=== PATIENT | female | born 1945 | race Caucasian/White ===

== ENCOUNTER → 2017-02-19 | Outpatient (REF) | payer MEDICARE, BC ==
[2017-02-19 18:40] LABS: FOLATE > 24.0 NG/ML; VITAMIN B12 LEVEL 767 PG/ML
[2017-02-19 18:45] LABS: PERCENT SATURATION 22.2 % (13.2-37.4); TOTAL IRON BINDING CAPACITY 428 UG/DL (250-450)
== END ==
LOC: M LAB REF 17:41
PROVIDERS: ATTEND Internal Medicine
DX: D50.9 Iron deficiency anemia, unspecified (principal)

== ENCOUNTER → 2018-04-30 | Outpatient (REF) | payer MEDICARE, BC | LOC: M LAB REF 12:52 | DX: R10.9 Unspecified abdominal pain (principal) | CPT/HCPCS: 87186 ==

== ENCOUNTER → 2021-02-08 | Outpatient (REF) | payer MEDICARE, BC | LOC: M LAB REF 16:49 | PROVIDERS: ATTEND Physician Assistant Medical | DX: I10 Essential (primary) hypertension (principal) ==

== ENCOUNTER → 2021-02-09 | Outpatient (CLI) | payer MEDICARE, BC ==
--- NOTE | 2021-02-09 10:50 | REP ---
INDICATION: HTN COMPARISON: None None TECHNIQUE: Real time pascal scale ultrasound examination using curved array transducer followed by color Doppler evaluation of the renal vasculature. FINDINGS: The kidneys are normal in reniform shape with no hydronephrosis, nephrolithiasis or mass lesion. Right kidney measures 10.9 x 5.1 x 2.8 cm. Left kidney measures 10.0 x 4.8 x 6.0 cm and includes 2.8 cm upper pole simple cyst. Incidental enlarged heterogeneous presumed myomatous uterus may warrant pelvic ultrasound.. Color Doppler evaluation. Peak aortic velocity: 79.5 centimeters/second RIGHT KIDNEY Renal arterial velocity: 84.9 centimeters/second Renal-aortic ratio: 1.1 Intrarenal resistive indices: 0.70-0.73 Intrarenal acceleration times: 0.033-0.042 LEFT KIDNEY Renal arterial velocity: 96.8 centimeters/second Renal-aortic ratio: 1.2 Intrarenal resistive indices: 0.74-0.78 Intrarenal acceleration times: 0.033-0.044 IMPRESSION: 1. Kidneys appear normal with incidental 2.8 cm left renal cyst. 2. Doppler interegation without sonographic evidence for renal arterial stenosis. 3. Enlarged heterogeneous presumed myomatous uterus may warrant pelvic ultrasound follow-up. <Electronically signed by Alfredo Ulloa > 02/09/21 [id number]
== END ==
LOC: M RAD 08:54
PROVIDERS: ATTEND Physician Assistant Medical
DX: I10 Essential (primary) hypertension (principal); N28.1 Cyst of kidney, acquired; N85.2 Hypertrophy of uterus

== ENCOUNTER → 2021-03-14 | Outpatient (REF) | payer MEDICARE, BC ==
[2021-03-15 14:48] LABS: FOLATE 11.8 NG/ML
== END ==
LOC: M LAB REF 12:20
PROVIDERS: ATTEND Internal Medicine
DX: M81.0 Age-related osteoporosis without current pathological fracture (principal); M85.9 Disorder of bone density and structure, unspecified

== ENCOUNTER → 2021-04-13 | Outpatient (CLI) | payer MEDICARE, BC ==
[~2021-04-13] MED LIST: ALDA25TA2 PO; CELE1CAP4 PO; LISI40TA4 PO; NADO40TA PO; NEXI40GR PO; PLAQ200T4 PO; TRAM50TA2 PO
== END ==
LOC: M LABSMTC 11:20
PROVIDERS: ATTEND Anesthesiology
DX: Z01.812 Encounter for preprocedural laboratory examination (principal); Z20.822 Contact with and (suspected) exposure to COVID-19

== ENCOUNTER → 2021-05-22 | Outpatient (CLI) | payer MEDICARE, BC ==
--- NOTE | 2021-05-22 13:41 | REP ---
INDICATION: J47.9 BRONCHIECTASIS, UNCOMPLICATED COMPARISON: 04/13/2020. TECHNIQUE: PA/Lateral FINDINGS: Lungs: There is no evidence of acute infiltrate. There is mild to moderate elevation of the right hemidiaphragm with adjacent fibro atelectatic change, stable. Heart: There is mild cardiomegaly which is stable. Mediastinum: Mediastinal silhouette unremarkable. Pleural angles: Unremarkable.. Bones and soft tissues: There are mild degenerative changes of the spine without compression deformity IMPRESSION: No acute pulmonary disease. Stable chronic findings as above. <Electronically signed by Cruz Guzman > 05/22/21 [id number]
== END ==
LOC: M PLAIMG 11:43
PROVIDERS: ATTEND Internal Medicine Pulmonary Disease
DX: J47.9 Bronchiectasis, uncomplicated (principal)

== ENCOUNTER → 2021-05-22 | Outpatient (CLI) | payer MEDICARE, BC ==
--- NOTE | 2021-05-22 13:11 | DEXAMM ---
INDICATION: AGE REL OSTEOPOROSIS W/O FX/M81.0. COMPARISON: 04/29/2019 as well as other prior exams. TECHNIQUE: Bone density was measured using dual-energy x-ray absorptiometry (DEXA). FINDINGS: AP SPINE L1-L4 BMD 1.075 g/cm2 Young Adult T-Score -1.0 Age Matched Z-Score 0.8. LT forearm, radius TOTAL BMD 0.462 g/cm2 Young Adult T-Score -3.5 Age Matched Z-Score -1.1. LT radius 33% BMD 0.553 g/cm2 Young Adult T-Score -3.7 Age Matched Z-Score -1.3. IMPRESSION: There is low bone density of the spine. There is osteoporosis of the left radius. The density of the spine has increased 3.4% since the initial exam on 12/01/2002. The density of the spine increased 2.4% since most recent exam on 04/29/2019. FOLLOW-UP: Recommendation for the next bone density exam: 2 years. <Electronically signed by Cruz Guzman > 05/22/21 [id number]
== END ==
LOC: M WHC 11:02
PROVIDERS: ATTEND Internal Medicine
DX: M81.0 Age-related osteoporosis without current pathological fracture (principal); M85.88 Other specified disorders of bone density and structure, other site; J47.9 Bronchiectasis, uncomplicated

== ENCOUNTER 2022-01-17 06:49 | Emergency (ER) | payer MEDICARE, BC ==
[2022-01-17] MEDS ORDERED: ACETAMINOPHEN TAB 650MG DOSE (2X325MG) PO ONE (07:00)
[2022-01-17 08:06] LABS: HEMATOCRIT 35.4 % (36.0-47.0); HEMOGLOBIN 12.2 g/dl (12.0-15.5); MEAN CORPUSCULAR HEMOGLOBIN 32.4 pg (27.0-33.0); MEAN CORPUSCULAR HGB CONC 34.5 g/dl (32.0-36.5); MEAN CORPUSCULAR VOLUME 94.1 fl (80.0-96.0); PLATELET COUNT, AUTOMATED 166 10^3/uL (150-450); RED BLOOD COUNT 3.76 10^6/uL (4.00-5.40)
[2022-01-17 08:37] LABS: ALBUMIN 3.3 GM/DL (3.2-5.2); ALT/SGPT 57 U/L (12-78); BILIRUBIN,DIRECT 0.2 MG/DL (0.0-0.2); BILIRUBIN,TOTAL 0.4 MG/DL (0.2-1.0); BLOOD UREA NITROGEN 30 MG/DL (7-18); CALCIUM LEVEL 9.4 MG/DL (8.8-10.2); CARBON DIOXIDE LEVEL 23 MEQ/L (21-32); CHLORIDE LEVEL 107 MEQ/L (98-107); CREATININE FOR GFR 0.92 MG/DL (0.55-1.30); GLOMERULAR FILTRATION RATE > 60.0 (>39); GLUCOSE, FASTING 93 MG/DL (70-100); NT-PRO BNP 881 PG/ML (<450); POTASSIUM SERUM 3.9 MEQ/L (3.5-5.1); SODIUM LEVEL 138 MEQ/L (136-145); TOTAL PROTEIN 6.5 GM/DL (6.4-8.2)
[2022-01-17] MEDS ORDERED: IBUPROFEN 600MG TAB PO ONE (09:05)
[2022-01-17 09:22] LABS: LYMPHOCYTES 12 % (16-44); NEUTROPHILS 86 % (28-66); PLATELET ESTIMATE DECREASED (NORMAL)
[2022-01-17 09:23] LABS: PLATELET CLUMPS SMALL AMT
[2022-01-17] MEDS ORDERED: RIZATRIPTAN BENZOATE 10 MG TAB PO STA (09:52)
[2022-01-17] MEDS ORDERED: RIZA10TA2 PO (10:29)
[2022-01-17] MEDS ORDERED: PRED5TA PO (10:29)
[2022-01-17] MEDS ORDERED: D3-5CAP PO (10:29)
[2022-01-17] MEDS ORDERED: MAGN200T PO (10:29)
[2022-01-17] MEDS ORDERED: ALLE180T33 PO (10:29)
[2022-01-17] MEDS ORDERED: FLON1SPR NARES (10:29)
[2022-01-17] MEDS ORDERED: ESTR62CR PV (10:29)
[2022-01-17] MEDS ORDERED: ESOM40CA35 PO (10:29)
[2022-01-17] MEDS ORDERED: REST0.05 OU (10:29)
[2022-01-17] MEDS ORDERED: TRIA1OI TOP (10:29)
[2022-01-17] MEDS ORDERED: HOME MED LIST COMPLETE! XX SCH (10:30)
[2022-01-17] MEDS ORDERED: CLINDAMYCIN 900 MG in IV 1 EA IV ONE (11:30)
[2022-01-17] MEDS ORDERED: CLEO300C2 PO (12:12)
[2022-01-17 12:47] VITALS: BP 112/56
[2022-01-17] MEDS ORDERED: MACR100C43 PO (12:57)
== END 2022-01-17 12:55 | disposition home or self-care (01) ==
LOC: M ED 06:49
DX: J01.90 Acute sinusitis, unspecified (principal); R93.2 Abnormal findings on diagnostic imaging of liver and biliary tract; R91.8 Other nonspecific abnormal finding of lung field; R50.9 Fever, unspecified; R06.02 Shortness of breath; R11.2 Nausea with vomiting, unspecified; M32.9 Systemic lupus erythematosus, unspecified; K21.9 Gastro-esophageal reflux disease without esophagitis; R13.10 Dysphagia, unspecified; G43.909 Migraine, unspecified, not intractable, without status migrainosus; K29.70 Gastritis, unspecified, without bleeding; N28.1 Cyst of kidney, acquired; N83.201 Unspecified ovarian cyst, right side; Z79.899 Other long term (current) drug therapy; Z88.8 Allergy status to other drugs, medicaments and biological substances; Z91.041 Radiographic dye allergy status; Z88.0 Allergy status to penicillin; Z88.2 Allergy status to sulfonamides; Z88.1 Allergy status to other antibiotic agents

== ENCOUNTER 2022-01-18 14:24 | Inpatient (IN) | payer MEDICARE, BC ==
[~2022-01-18] VITALS: Ht 165.1 cm; Wt 64.5 kg
[~2022-01-18 14:24] MED LIST changes: +ALLE180T33 PO; +CLEO300C2 PO; +D3-5CAP PO; +ESOM40CA35 PO; +ESTR62CR PV; +FLON1SPR NARES; +MACR100C43 PO; +MAGN200T PO; +PRED5TA PO; +REST0.05 OU; +RIZA10TA2 PO; +TRIA1OI TOP
[2022-01-18] MEDS ORDERED: RIZATRIPTAN MLT 10 MG TAB PO ONE (14:55)
[2022-01-18] MEDS ORDERED: ONDANSETRON 4MG/2ML VIAL IV ONE (14:55)
[2022-01-18] MEDS ORDERED: IBUPROFEN 600MG TAB PO ONE (15:00)
[2022-01-18 15:24] LABS: HEMATOCRIT 34.8 % (36.0-47.0); HEMOGLOBIN 11.8 g/dl (12.0-15.5); MEAN CORPUSCULAR HGB CONC 33.9 g/dl (32.0-36.5); MEAN CORPUSCULAR VOLUME 94.3 fl (80.0-96.0); PLATELET COUNT, AUTOMATED 161 10^3/uL (150-450); RED BLOOD COUNT 3.69 10^6/uL (4.00-5.40); WHITE BLOOD COUNT 10.2 10^3/uL (4.0-10.0)
[2022-01-18] MEDS: NS 1,000 ML IV SCH ×2 (15:31→20:52)
[2022-01-18 15:44] LABS: ALT/SGPT 83 U/L (12-78); BILIRUBIN,DIRECT 0.6 MG/DL (0.0-0.2); BLOOD UREA NITROGEN 19 MG/DL (7-18); CALCIUM LEVEL 8.7 MG/DL (8.8-10.2); CARBON DIOXIDE LEVEL 23 MEQ/L (21-32); CHLORIDE LEVEL 103 MEQ/L (98-107); CREATININE FOR GFR 0.83 MG/DL (0.55-1.30); GLOMERULAR FILTRATION RATE > 60.0 (>39); GLUCOSE, FASTING 81 MG/DL (70-100); LIPASE 60 U/L (73-393); POTASSIUM SERUM 3.3 MEQ/L (3.5-5.1); SODIUM LEVEL 134 MEQ/L (136-145); TOTAL PROTEIN 6.1 GM/DL (6.4-8.2)
[2022-01-18 16:06] LABS: LYMPHOCYTES 3 % (16-44); METAMYELOCYTES 2 % (0-0); MONOCYTES 2 % (0-5); MYELOCYTES 1 % (0-0); NEUTROPHILS 73 % (28-66); PLATELET ESTIMATE NORMAL (NORMAL)
[2022-01-18 16:07] LABS: TOXIC VACUOLATION 1+
[2022-01-18 17:55] LABS: ERYTHROCYTE SEDIMENTATION RATE 35 mm/hr (0-30)
[2022-01-18] MEDS ORDERED: MEROPENEM INJ 1 GM in IV 1 EA IV SCH (18:00)
[2022-01-18] MEDS ORDERED: HOME MED LIST COMPLETE! XX SCH (18:10)
[2022-01-18 18:50] VITALS: BP 123/57
[2022-01-18] MEDS ORDERED: RIZATRIPTAN BENZOATE 10 MG TAB PO PRN (18:55)
[2022-01-18 19:13] LABS: MONO REFLEX EBV VCA IgM NEGATIVE (NEGATIVE)
[2022-01-18] MEDS ORDERED: POTASSIUM CHLORIDE 10MEQ SR TABLET PO ONE (20:00)
[2022-01-18] MEDS: NADOLOL 20MG TABLET PO SCH (20:51)
[2022-01-18] MEDS: CelecoXIB (CeleBREX) 100 MG CAP PO SCH (20:52)
[2022-01-18] MEDS: ACETAMINOPHEN TAB 650MG DOSE (2X325MG) PO PRN (20:57)
[2022-01-18] MEDS: MEROPENEM INJ 1 GM in IV 1 EA IV SCH (22:31)
[2022-01-19] MEDS: NS 1,000 ML IV SCH (04:36)
[2022-01-19 05:27] VITALS: BP 144/65
[2022-01-19] MEDS: MEROPENEM INJ 1 GM in IV 1 EA IV SCH ×3 (05:44→21:03)
[2022-01-19] MEDS: traMADol 50 MG TAB PO PRN ×2 (05:55→15:54)
[2022-01-19 07:14] LABS: HEMATOCRIT 31.9 % (36.0-47.0); HEMOGLOBIN 10.5 g/dl (12.0-15.5); MEAN CORPUSCULAR HEMOGLOBIN 32.2 pg (27.0-33.0); MEAN CORPUSCULAR HGB CONC 32.9 g/dl (32.0-36.5); MEAN CORPUSCULAR VOLUME 97.9 fl (80.0-96.0); PLATELET COUNT, AUTOMATED 159 10^3/uL (150-450); RED BLOOD COUNT 3.26 10^6/uL (4.00-5.40); WHITE BLOOD COUNT 12.1 10^3/uL (4.0-10.0)
[2022-01-19 07:38] LABS: ALBUMIN 2.5 GM/DL (3.2-5.2); ALT/SGPT 59 U/L (12-78); BILIRUBIN,TOTAL 0.6 MG/DL (0.2-1.0); BLOOD UREA NITROGEN 17 MG/DL (7-18); CALCIUM LEVEL 8.1 MG/DL (8.8-10.2); CARBON DIOXIDE LEVEL 21 MEQ/L (21-32); CHLORIDE LEVEL 109 MEQ/L (98-107); CREATININE FOR GFR 0.75 MG/DL (0.55-1.30); GLOMERULAR FILTRATION RATE > 60.0 (>39); GLUCOSE, FASTING 58 MG/DL (70-100); POTASSIUM SERUM 3.8 MEQ/L (3.5-5.1); SODIUM LEVEL 139 MEQ/L (136-145); TOTAL PROTEIN 5.3 GM/DL (6.4-8.2)
[2022-01-19 07:57] LABS: EOSINOPHILS 1 % (0-3); LYMPHOCYTES 7 % (16-44); MONOCYTES 2 % (0-5); NEUTROPHILS 87 % (28-66); PLATELET ESTIMATE NORMAL (NORMAL)
[2022-01-19] MEDS: CelecoXIB (CeleBREX) 100 MG CAP PO SCH ×2 (08:23→21:02)
[2022-01-19] MEDS: FLUTICASONE PROP 0.05% NASAL SPRAY 16 GM (FLONASE) NARES SCH (08:23)
[2022-01-19] MEDS: predniSONE 5 MG TAB PO SCH (08:23)
[2022-01-19] MEDS ORDERED: FEXOFENADINE 60MG TAB PO SCH (12:00)
[2022-01-19 14:00] VITALS: BP 150/67
[2022-01-19] MEDS: PLAQUENIL 200 MG PO SCH (17:19)
[2022-01-19] MEDS: NADOLOL 20MG TABLET PO SCH (21:02)
[2022-01-19 22:00] VITALS: BP 156/71
[2022-01-20] MEDS: MEROPENEM INJ 1 GM in IV 1 EA IV SCH ×3 (05:32→21:11)
[2022-01-20 06:00] VITALS: BP 180/82
[2022-01-20 07:01] LABS: BASO % 0.4 % (0.0-1.0); EOS # 0.1 10^3/uL (0.0-0.5); EOS % 1.3 % (0.0-3.0); HEMATOCRIT 32.2 % (36.0-47.0); HEMOGLOBIN 10.7 g/dl (12.0-15.5); LYMPH # 0.9 10^3/uL (1.5-5.0); LYMPH % 9.1 % (24.0-44.0); MEAN CORPUSCULAR HEMOGLOBIN 31.7 pg (27.0-33.0); MEAN CORPUSCULAR HGB CONC 33.2 g/dl (32.0-36.5); MEAN CORPUSCULAR VOLUME 95.3 fl (80.0-96.0); MONO # 0.8 10^3/uL (0.0-0.8); MONO % 8.7 % (2.0-8.0); NEUTROPHILS # 7.7 10^3/uL (1.5-8.5); NEUTROPHILS % 79.4 % (36.0-66.0); PLATELET COUNT, AUTOMATED 179 10^3/uL (150-450); RED BLOOD COUNT 3.38 10^6/uL (4.00-5.40); WHITE BLOOD COUNT 9.7 10^3/uL (4.0-10.0)
[2022-01-20 07:23] VITALS: BP 149/64
[2022-01-20 07:25] LABS: ALBUMIN 2.4 GM/DL (3.2-5.2); ALT/SGPT 45 U/L (12-78); BILIRUBIN,TOTAL 0.5 MG/DL (0.2-1.0); BLOOD UREA NITROGEN 12 MG/DL (7-18); CALCIUM LEVEL 8.6 MG/DL (8.8-10.2); CARBON DIOXIDE LEVEL 23 MEQ/L (21-32); CHLORIDE LEVEL 110 MEQ/L (98-107); GLOMERULAR FILTRATION RATE > 60.0 (>39); GLUCOSE, FASTING 96 MG/DL (70-100); POTASSIUM SERUM 3.6 MEQ/L (3.5-5.1); SODIUM LEVEL 138 MEQ/L (136-145); TOTAL PROTEIN 6.6 GM/DL (6.4-8.2)
[2022-01-20] MEDS: predniSONE 5 MG TAB PO SCH (08:23)
[2022-01-20] MEDS: traMADol 50 MG TAB PO PRN (08:24)
[2022-01-20] MEDS: SPIRONOLACTONE 25 MG TAB PO SCH (08:24)
[2022-01-20] MEDS: TRIAMCINOLONE ACET 0.1% OINTMENT 15 GM TOP SCH ×2 (08:24→21:00)
[2022-01-20] MEDS: FLUTICASONE PROP 0.05% NASAL SPRAY 16 GM (FLONASE) NARES SCH (08:24)
[2022-01-20 14:00] VITALS: BP 138/70
[2022-01-20] MEDS: CelecoXIB 400 MG CAP PO SCH (17:30)
[2022-01-20] MEDS: PLAQUENIL 200 MG PO SCH (17:30)
[2022-01-20] MEDS: LACTOBACILLUS ACIDOPHILUS CAP (BACID) PO SCH (21:11)
[2022-01-20] MEDS: NADOLOL 20MG TABLET PO SCH (21:12)
[2022-01-20 22:00] VITALS: BP 136/61
[2022-01-21] MEDS: MEROPENEM INJ 1 GM in IV 1 EA IV SCH ×3 (05:48→21:15)
[2022-01-21 06:00] VITALS: BP 142/78
[2022-01-21 06:13] LABS: BASO # 0.1 10^3/uL (0.0-0.2); BASO % 0.7 % (0.0-1.0); EOS # 0.1 10^3/uL (0.0-0.5); EOS % 1.6 % (0.0-3.0); HEMATOCRIT 32.5 % (36.0-47.0); HEMOGLOBIN 10.7 g/dl (12.0-15.5); LYMPH % 13.6 % (24.0-44.0); MEAN CORPUSCULAR HEMOGLOBIN 31.3 pg (27.0-33.0); MEAN CORPUSCULAR HGB CONC 32.9 g/dl (32.0-36.5); MONO # 0.7 10^3/uL (0.0-0.8); MONO % 9.8 % (2.0-8.0); NEUTROPHILS # 5.1 10^3/uL (1.5-8.5); NEUTROPHILS % 72.3 % (36.0-66.0); PLATELET COUNT, AUTOMATED 188 10^3/uL (150-450); RED BLOOD COUNT 3.42 10^6/uL (4.00-5.40); WHITE BLOOD COUNT 7.1 10^3/uL (4.0-10.0)
[2022-01-21 06:36] LABS: ALBUMIN 2.6 GM/DL (3.2-5.2); ALT/SGPT 39 U/L (12-78); BILIRUBIN,TOTAL 0.5 MG/DL (0.2-1.0); BLOOD UREA NITROGEN 11 MG/DL (7-18); CALCIUM LEVEL 8.7 MG/DL (8.8-10.2); CARBON DIOXIDE LEVEL 27 MEQ/L (21-32); CHLORIDE LEVEL 108 MEQ/L (98-107); CREATININE FOR GFR 0.56 MG/DL (0.55-1.30); GLOMERULAR FILTRATION RATE > 60.0 (>39); GLUCOSE, FASTING 96 MG/DL (70-100); POTASSIUM SERUM 3.8 MEQ/L (3.5-5.1); SODIUM LEVEL 140 MEQ/L (136-145); TOTAL PROTEIN 5.7 GM/DL (6.4-8.2)
[2022-01-21] MEDS: TRIAMCINOLONE ACET 0.1% OINTMENT 15 GM TOP SCH ×2 (09:00→21:00)
[2022-01-21] MEDS: predniSONE 5 MG TAB PO SCH (09:46)
[2022-01-21] MEDS: LACTOBACILLUS ACIDOPHILUS CAP (BACID) PO SCH ×4 (09:46→21:15)
[2022-01-21] MEDS: ACETAMINOPHEN TAB 650MG DOSE (2X325MG) PO PRN (09:47)
[2022-01-21] MEDS: FLUTICASONE PROP 0.05% NASAL SPRAY 16 GM (FLONASE) NARES SCH (09:48)
[2022-01-21 14:00] VITALS: BP 140/75
[2022-01-21 15:10] LABS: ANTI DOUBLE STRAND-DNA AB 5 IU/mL (0-9); ANTINUCLEAR ANTIBODIES DIRECT Positive (Negative); RNP ANTIBODIES <0.2 AI (0.0-0.9); SJOGREN'S ANTI SS-A 0.4 AI (0.0-0.9); SJOGREN'S ANTI SS-B <0.2 AI (0.0-0.9); SMITH ANTIBODIES <0.2 AI (0.0-0.9)
[2022-01-21] MEDS: PLAQUENIL 200 MG PO SCH (18:25)
[2022-01-21] MEDS: CelecoXIB 400 MG CAP PO SCH (18:25)
[2022-01-21 20:33] VITALS: BP 136/78
[2022-01-21 21:17] VITALS: BP 140/72
[2022-01-21] MEDS: NADOLOL 20MG TABLET PO SCH (21:17)
[2022-01-22 05:26] VITALS: BP 149/88
[2022-01-22 06:16] LABS: HEMOGLOBIN 11.3 g/dl (12.0-15.5); MEAN CORPUSCULAR HEMOGLOBIN 31.3 pg (27.0-33.0); MEAN CORPUSCULAR HGB CONC 33.2 g/dl (32.0-36.5); MEAN CORPUSCULAR VOLUME 94.2 fl (80.0-96.0); PLATELET COUNT, AUTOMATED 210 10^3/uL (150-450); RED BLOOD COUNT 3.61 10^6/uL (4.00-5.40); WHITE BLOOD COUNT 6.7 10^3/uL (4.0-10.0)
[2022-01-22] MEDS: MEROPENEM INJ 1 GM in IV 1 EA IV SCH ×2 (06:17→14:20)
[2022-01-22 06:45] LABS: ATYPICAL LYMPH 1 % (0-5); BASOPHILS 1 % (0-1); EOSINOPHILS 2 % (0-3); LYMPHOCYTES 22 % (16-44); MONOCYTES 3 % (0-5); NEUTROPHILS 71 % (28-66); PLATELET ESTIMATE NORMAL (NORMAL)
[2022-01-22 06:47] LABS: ALBUMIN 2.6 GM/DL (3.2-5.2); ALT/SGPT 39 U/L (12-78); BILIRUBIN,TOTAL 0.3 MG/DL (0.2-1.0); BLOOD UREA NITROGEN 13 MG/DL (7-18); CALCIUM LEVEL 9.1 MG/DL (8.8-10.2); CARBON DIOXIDE LEVEL 26 MEQ/L (21-32); CHLORIDE LEVEL 107 MEQ/L (98-107); GLOMERULAR FILTRATION RATE > 60.0 (>39); GLUCOSE, FASTING 93 MG/DL (70-100); POTASSIUM SERUM 3.9 MEQ/L (3.5-5.1); SODIUM LEVEL 141 MEQ/L (136-145); TOTAL PROTEIN 5.8 GM/DL (6.4-8.2)
[2022-01-22] MEDS: TRIAMCINOLONE ACET 0.1% OINTMENT 15 GM TOP SCH (09:00)
[2022-01-22] MEDS: LACTOBACILLUS ACIDOPHILUS CAP (BACID) PO SCH ×3 (10:32→17:30)
[2022-01-22] MEDS: FLUTICASONE PROP 0.05% NASAL SPRAY 16 GM (FLONASE) NARES SCH (10:32)
[2022-01-22] MEDS: predniSONE 5 MG TAB PO SCH (10:35)
[2022-01-22] MEDS: SPIRONOLACTONE 25 MG TAB PO SCH (10:35)
[2022-01-22 14:00] VITALS: BP 120/80
[2022-01-22 15:39] VITALS: BP 217/86
[2022-01-22] MEDS ORDERED: RISATAB3 PO (15:48)
[2022-01-22] MEDS ORDERED: LIDOCAINE 1% MDV 20ML VIAL As Ordered ONE (16:27)
[2022-01-22] MEDS: PLAQUENIL 200 MG PO SCH (17:30)
[2022-01-22] MEDS: CelecoXIB 400 MG CAP PO SCH (17:30)
[2022-01-22] MEDS ORDERED: SODIUM CHLORIDE 0.9% INJ 10 ML SYR IV PRN (17:45)
[2022-01-22] MEDS ORDERED: SODIUM CHLORIDE 0.9% INJ 10 ML SYR IV SCH (18:00)
== END 2022-01-22 18:45 | disposition home or self-care (01) | DRG 689 ==
LOC: M ED 14:24 → M ED INP 16:34 → M MSPAV 18:45
PROVIDERS: ADMIT General Practice; ATTEND Internal Medicine
PROC: 02HV33Z Insertion of Infusion Device into Superior Vena Cava, Percutaneous Approach (ICD-10-PCS; principal; 2022-01-22 11:00)
DX: N39.0 Urinary tract infection, site not specified (principal); J18.9 Pneumonia, unspecified organism; R78.81 Bacteremia; A31.0 Pulmonary mycobacterial infection; J01.90 Acute sinusitis, unspecified; Z79.52 Long term (current) use of systemic steroids; J47.9 Bronchiectasis, uncomplicated; B96.20 Unspecified Escherichia coli [E. coli] as the cause of diseases classified elsewhere; L93.0 Discoid lupus erythematosus; R74.01 Elevation of levels of liver transaminase levels; R91.8 Other nonspecific abnormal finding of lung field; K76.0 Fatty (change of) liver, not elsewhere classified; Z79.899 Other long term (current) drug therapy; Z88.2 Allergy status to sulfonamides; Z88.8 Allergy status to other drugs, medicaments and biological substances; Z91.018 Allergy to other foods; R19.7 Diarrhea, unspecified

== ENCOUNTER 2022-01-28 08:16 | Outpatient (CLI) | payer MEDICARE, BC ==
[~2022-01-28] VITALS: Ht 165.1 cm; Wt 64.0 kg
[~2022-01-28 08:16] MED LIST changes: +RISATAB3 PO
[2022-01-28 08:46] VITALS: BP 169/77
[2022-01-28 08:59] VITALS: BP 158/76
== END 2022-01-28 09:00 | disposition home or self-care (01) ==
LOC: M INFU 08:16
PROVIDERS: ATTEND General Practice
DX: R78.81 Bacteremia (principal); B96.20 Unspecified Escherichia coli [E. coli] as the cause of diseases classified elsewhere; Z88.8 Allergy status to other drugs, medicaments and biological substances; Z91.041 Radiographic dye allergy status; Z88.0 Allergy status to penicillin; Z88.2 Allergy status to sulfonamides; Z88.1 Allergy status to other antibiotic agents; Z91.018 Allergy to other foods

== ENCOUNTER → 2022-04-22 | Outpatient (CLI) | payer MEDICARE, BC | LOC: M PLAIMG 14:39 | PROVIDERS: ATTEND Internal Medicine | DX: D37.6 Neoplasm of uncertain behavior of liver, gallbladder and bile ducts (principal) ==

== ENCOUNTER → 2022-06-04 | Outpatient (CLI) | payer MEDICARE, BC | LOC: M PLAIMG 10:40 | PROVIDERS: ATTEND Internal Medicine Pulmonary Disease | DX: J47.9 Bronchiectasis, uncomplicated (principal); R91.8 Other nonspecific abnormal finding of lung field ==

== ENCOUNTER → 2022-09-26 12:18 | Day surgery (SDC) | payer MEDICARE, BC ==
[2021-04-18 16:48] VITALS: BP 168/75
[~2022-09-26] VITALS: Ht 165.1 cm; Wt 60.1 kg
[~2022-09-26 12:18] MED LIST changes: +NS 1,000 ML IV ONE; +fentaNYL 100 MCG/2 ML INJECTION As Ordered ONE
== END | disposition home or self-care (01) ==
LOC: M OPP 04-18 12:41
PROVIDERS: ATTEND Surgery
DX: K22.2 Esophageal obstruction (principal); K31.7 Polyp of stomach and duodenum; R13.14 Dysphagia, pharyngoesophageal phase; K44.9 Diaphragmatic hernia without obstruction or gangrene; Z79.891 Long term (current) use of opiate analgesic; Z79.899 Other long term (current) drug therapy; Z88.0 Allergy status to penicillin; Z88.1 Allergy status to other antibiotic agents; Z88.2 Allergy status to sulfonamides
CPT/HCPCS: 43249; J3010

== ENCOUNTER → 2023-01-21 | Outpatient (CLI) | payer MEDICARE, BC ==
[~2023-01-21] MED LIST changes: -NS 1,000 ML IV ONE; -fentaNYL 100 MCG/2 ML INJECTION As Ordered ONE
== END ==
LOC: M PLAIMG 12:10
PROVIDERS: ATTEND Internal Medicine Pulmonary Disease
DX: J47.9 Bronchiectasis, uncomplicated (principal)

== ENCOUNTER → 2023-02-21 | Outpatient (CLI) | payer MEDICARE, BC | LOC: M PLAIMG 11:46 | PROVIDERS: ATTEND Internal Medicine Pulmonary Disease | DX: J47.9 Bronchiectasis, uncomplicated (principal) ==

== ENCOUNTER → 2023-02-25 | Outpatient (REF) | payer MEDICARE, BC | LOC: M LAB REF 11:27 | PROVIDERS: ATTEND Internal Medicine Pulmonary Disease | DX: J47.9 Bronchiectasis, uncomplicated (principal) ==

== ENCOUNTER → 2023-03-06 | Outpatient (CLI) | payer MEDICARE, BC | LOC: M RAD 09:31 | PROVIDERS: ATTEND Otolaryngology | DX: J32.4 Chronic pansinusitis (principal); J34.2 Deviated nasal septum ==

== ENCOUNTER → 2023-03-18 | Outpatient (CLI) | payer MEDICARE, BC | LOC: M RADPRO 09:47 | PROVIDERS: ATTEND Internal Medicine Pulmonary Disease | DX: K44.9 Diaphragmatic hernia without obstruction or gangrene (principal) ==

== ENCOUNTER → 2023-03-21 | Outpatient (REF) | payer MEDICARE, BC ==
[2023-03-21 14:26] LABS: PERCENT SATURATION 24.1 % (13.2-45.0)
[2023-03-21 14:32] LABS: FOLATE 6.7 NG/ML (>5.4)
== END ==
LOC: M LAB REF 13:22
PROVIDERS: ATTEND Internal Medicine
DX: D64.9 Anemia, unspecified (principal)

== ENCOUNTER 2023-05-25 10:38 | Inpatient (IN) | payer MEDICARE, BC ==
[~2023-05-25] VITALS: Ht 165.1 cm; Wt 63.5 kg
[2023-05-25 11:13] LABS: BASO % 0.2 % (0.0-1.0); EOS % 0.2 % (0.0-3.0); HEMATOCRIT 31.3 % (36.0-47.0); HEMOGLOBIN 10.5 g/dl (12.0-15.5); LYMPH # 0.4 10^3/uL (1.5-5.0); LYMPH % 2.9 % (24.0-44.0); MEAN CORPUSCULAR HEMOGLOBIN 32.6 pg (27.0-33.0); MEAN CORPUSCULAR HGB CONC 33.5 g/dl (32.0-36.5); MEAN CORPUSCULAR VOLUME 97.2 fl (80.0-96.0); MONO % 7.8 % (2.0-8.0); NEUTROPHILS # 11.7 10^3/uL (1.5-8.5); NEUTROPHILS % 88.3 % (36.0-66.0); PLATELET COUNT, AUTOMATED 193 10^3/uL (150-450); RED BLOOD COUNT 3.22 10^6/uL (4.00-5.40); WHITE BLOOD COUNT 13.3 10^3/uL (4.0-10.0)
[2023-05-25 11:29] LABS: APPEARANCE, URINE HAZY (CLEAR); BACTERIA, URINE AUTO 1+ (NEGATIVE); BILIRUBIN, URINE AUTO NEGATIVE (NEGATIVE); BLOOD, URINE BLOOD 1+ (NEGATIVE); COLOR, URINE YELLOW (YELLOW); GLUCOSE, URINE (UA) AUTO NEGATIVE (NEGATIVE); KETONE, URINE AUTO NEGATIVE (NEGATIVE); LEUKOCYTE ESTERASE, URINE AUTO 1+ (NEGATIVE); MUCUS, URINE SMALL (NEGATIVE); NITRITE, URINE AUTO NEGATIVE (NEGATIVE); PROTEIN, URINE AUTO NEGATIVE (NEGATIVE); RBC, URINE AUTO 2 /HPF (0-3); SPECIFIC GRAVITY URINE AUTO 1.015 (1.002-1.035); SQUAMOUS EPITHELIAL CELL UR AU 4 /HPF (0-6); UROBILINOGEN, URINE AUTO 0.2 mg/dL (0.0-2.0); WBC, URINE AUTO 26 /HPF (0-3)
[2023-05-25 11:42] LABS: ALBUMIN 3.3 G/DL (3.2-5.2); BILIRUBIN,TOTAL 0.5 MG/DL (0.3-1.2); CALCIUM LEVEL 9.1 MG/DL (8.3-10.6); CREATININE FOR GFR 0.96 MG/DL (0.55-1.30); GLOMERULAR FILTRATION RATE 59.8 (>39); POTASSIUM SERUM 4.4 MMOL/L (3.5-5.1); RSV AMPLIFICATION NEGATIVE (NEGATIVE); TOTAL PROTEIN 6.1 G/DL (5.7-8.2)
[2023-05-25 14:55] LABS: INR 1.08; PROTHROMBIN TIME 13.7 SECONDS (12.5-14.5)
[2023-05-25 15:02] LABS: CK-MB VALUE MASS < 1.0 NG/ML (<3.6)
[2023-05-25 15:03] LABS: CPK CREATINE PHOSPHOKINASE 82 U/L (34-145); MB/CK RELATIVE INDEX 1.21 (< OR =4)
[2023-05-25 15:06] LABS: THYROID STIMULATING HORMONE 1.037 uIU/ML (0.55-4.78)
[2023-05-25 15:15] LABS: PROCALCITONIN 0.31 ng/ml
[2023-05-25] MEDS ORDERED: MEROPENEM INJ 1 GM in IV 1 EA IV ONE (17:35)
[2023-05-25] MEDS ORDERED: ACETAMINOPHEN TAB 650MG DOSE (2X325MG) PO ONE (18:00)
[2023-05-25] MEDS ORDERED: MOM 30ML SUSPENSION UDC PO PRN (18:15)
[2023-05-25] MEDS ORDERED: MAALOX 30 ML SUSP *UDC PO PRN (18:15)
[2023-05-25] MEDS ORDERED: NADOLOL 20MG TABLET PO ONE (18:20)
[2023-05-25] MEDS ORDERED: NADO40TA PO (19:00)
[2023-05-25] MEDS ORDERED: RISATAB3 PO (19:00)
[2023-05-25] MEDS ORDERED: ACET650T15 PO (19:00)
[2023-05-25] MEDS ORDERED: HOME MED LIST COMPLETE! XX SCH (19:05)
[2023-05-25 19:17] LABS: CALCIUM LEVEL 8.8 MG/DL (8.3-10.6); MAGNESIUM LEVEL 1.6 MG/DL (1.8-2.4)
[2023-05-25 20:10] VITALS: BP 174/78; TEMP 100.7; O2SAT 95
[2023-05-25] MEDS ORDERED: amLODIPine 5 MG TAB PO ONE (21:00)
[2023-05-25 22:05] VITALS: BP 188/86; TEMP 102.9
[2023-05-25] MEDS: ACETAMINOPHEN TAB 650MG DOSE (2X325MG) PO PRN (22:05)
[2023-05-25] MEDS: RIZATRIPTAN BENZOATE 10 MG TAB PO PRN (22:50)
[2023-05-25 23:46] VITALS: BP 148/76; TEMP 101.8; O2SAT 96
[2023-05-26] VITALS (11 sets, daily range): BP systolic 107–147; BP diastolic 56–72; TEMP 96.5–101.9; O2SAT 94–97
[2023-05-26] MEDS: ACETAMINOPHEN TAB 650MG DOSE (2X325MG) PO PRN ×2 (02:26→08:13)
[2023-05-26] MEDS: MEROPENEM INJ 1 GM in IV 1 EA IV SCH ×2 (05:23→17:31)
[2023-05-26 05:49] LABS: BASO % 0.2 % (0.0-1.0); EOS % 0.1 % (0.0-3.0); HEMATOCRIT 35.8 % (36.0-47.0); HEMOGLOBIN 11.5 g/dl (12.0-15.5); LYMPH # 0.9 10^3/uL (1.5-5.0); LYMPH % 5.5 % (24.0-44.0); MEAN CORPUSCULAR HEMOGLOBIN 32.1 pg (27.0-33.0); MEAN CORPUSCULAR HGB CONC 32.1 g/dl (32.0-36.5); MONO # 1.3 10^3/uL (0.0-0.8); MONO % 7.8 % (2.0-8.0); NEUTROPHILS # 13.7 10^3/uL (1.5-8.5); NEUTROPHILS % 85.7 % (36.0-66.0); PLATELET COUNT, AUTOMATED 202 10^3/uL (150-450); RED BLOOD COUNT 3.58 10^6/uL (4.00-5.40); WHITE BLOOD COUNT 16.1 10^3/uL (4.0-10.0)
[2023-05-26 06:11] LABS: BLOOD UREA NITROGEN 18 MG/DL (9-23); CALCIUM LEVEL 9.3 MG/DL (8.3-10.6); CARBON DIOXIDE LEVEL 19 MMOL/L (20-31); CHLORIDE LEVEL 102 MMOL/L (98-107); CREATININE FOR GFR 0.93 MG/DL (0.55-1.30); GLOMERULAR FILTRATION RATE > 60.0 (>39); GLUCOSE, FASTING 62 MG/DL (74-106); MAGNESIUM LEVEL 1.8 MG/DL (1.8-2.4); POTASSIUM SERUM 4.3 MMOL/L (3.5-5.1); SODIUM LEVEL 137 MMOL/L (136-145)
[2023-05-26] MEDS: FLUTICASONE PROP 0.05% NASAL SPRAY 16 GM (FLONASE) NARES SCH (08:12)
[2023-05-26] MEDS: FEXOFENADINE 60MG TAB PO SCH (08:12)
[2023-05-26] MEDS: ENOXAPARIN 40MG/0.4ML SYRINGE (J1650 PER 10MG) SC SCH (08:12)
[2023-05-26] MEDS: CelecoXIB (CeleBREX) 100 MG CAP PO SCH ×2 (08:14→20:04)
[2023-05-26] MEDS: OMEPRAZOLE 20MG CAP PO SCH ×2 (08:14→10:53)
[2023-05-26] MEDS: HYDROXYCHLOROQUINE 200 MG TAB PO SCH ×3 (08:14→20:04)
[2023-05-26] MEDS: predniSONE 10MG TAB PO SCH (08:15)
[2023-05-26] MEDS: traMADol 50 MG TAB PO PRN (08:15)
[2023-05-26] MEDS: LACTOBACILLUS ACIDOPHILUS CAP (BACID) PO SCH ×3 (08:15→20:03)
[2023-05-26] MEDS ORDERED: SPIRONOLACTONE 25 MG TAB PO SCH (09:00)
[2023-05-26] MEDS: NADOLOL 20MG TABLET PO SCH (10:53)
[2023-05-26] MEDS: RIZATRIPTAN BENZOATE 10 MG TAB PO PRN (22:01)
[2023-05-27 03:43] VITALS: BP 142/71; TEMP 98.1; O2SAT 97
[2023-05-27 05:00] LABS: BASO % 0.1 % (0.0-1.0); EOS # 0.1 10^3/uL (0.0-0.5); EOS % 1.1 % (0.0-3.0); HEMATOCRIT 34.1 % (36.0-47.0); LYMPH # 0.8 10^3/uL (1.5-5.0); LYMPH % 9.2 % (24.0-44.0); MEAN CORPUSCULAR HEMOGLOBIN 31.7 pg (27.0-33.0); MEAN CORPUSCULAR HGB CONC 32.3 g/dl (32.0-36.5); MEAN CORPUSCULAR VOLUME 98.3 fl (80.0-96.0); MONO # 0.9 10^3/uL (0.0-0.8); MONO % 10.2 % (2.0-8.0); NEUTROPHILS # 6.7 10^3/uL (1.5-8.5); NEUTROPHILS % 78.7 % (36.0-66.0); PLATELET COUNT, AUTOMATED 170 10^3/uL (150-450); RED BLOOD COUNT 3.47 10^6/uL (4.00-5.40); WHITE BLOOD COUNT 8.6 10^3/uL (4.0-10.0)
[2023-05-27] MEDS: MEROPENEM INJ 1 GM in IV 1 EA IV SCH (05:10)
[2023-05-27 05:30] LABS: CALCIUM LEVEL 8.9 MG/DL (8.3-10.6); CREATININE FOR GFR 1.05 MG/DL (0.55-1.30); POTASSIUM SERUM 4.4 MMOL/L (3.5-5.1)
[2023-05-27 08:37] VITALS: BP 102/61; TEMP 97.2; O2SAT 94
[2023-05-27 09:00] VITALS: BP 100/64
[2023-05-27] MEDS: NADOLOL 20MG TABLET PO SCH (09:00)
[2023-05-27 09:30] VITALS: BP 110/68
[2023-05-27] MEDS: ENOXAPARIN 40MG/0.4ML SYRINGE (J1650 PER 10MG) SC SCH (09:34)
[2023-05-27] MEDS: FEXOFENADINE 60MG TAB PO SCH (09:35)
[2023-05-27] MEDS: HYDROXYCHLOROQUINE 200 MG TAB PO SCH (09:35)
[2023-05-27] MEDS: LACTOBACILLUS ACIDOPHILUS CAP (BACID) PO SCH (09:35)
[2023-05-27] MEDS: OMEPRAZOLE 20MG CAP PO SCH (09:35)
[2023-05-27] MEDS: predniSONE 10MG TAB PO SCH (09:35)
[2023-05-27] MEDS: CelecoXIB (CeleBREX) 100 MG CAP PO SCH (09:35)
[2023-05-27] MEDS: FLUTICASONE PROP 0.05% NASAL SPRAY 16 GM (FLONASE) NARES SCH (09:36)
[2023-05-27] MEDS: traMADol 50 MG TAB PO PRN (09:55)
[2023-05-27 12:00] VITALS: BP 126/72; TEMP 97.8; O2SAT 95
[2023-05-27] MEDS ORDERED: CEFD300C41 PO (13:09)
== END 2023-05-27 16:11 | disposition home or self-care (01) | DRG 872 ==
LOC: EDUNIT# 10:38 → EDBD 10:38 → M ED 10:38 → M ED INP 18:11 → M PCU 20:53
PROVIDERS: ADMIT Student in an Organized Health Care Education/Training Program; ATTEND Internal Medicine
DX: A41.59 Other Gram-negative sepsis (principal); J21.9 Acute bronchiolitis, unspecified; A31.0 Pulmonary mycobacterial infection; N39.0 Urinary tract infection, site not specified; J01.90 Acute sinusitis, unspecified; I16.0 Hypertensive urgency; J47.9 Bronchiectasis, uncomplicated; M79.10 Myalgia, unspecified site; K31.7 Polyp of stomach and duodenum; M32.9 Systemic lupus erythematosus, unspecified; I10 Essential (primary) hypertension; B96.1 Klebsiella pneumoniae [K. pneumoniae] as the cause of diseases classified elsewhere; I28.9 Disease of pulmonary vessels, unspecified; Z79.52 Long term (current) use of systemic steroids; Z88.2 Allergy status to sulfonamides; Z88.0 Allergy status to penicillin; Z88.8 Allergy status to other drugs, medicaments and biological substances; Z79.899 Other long term (current) drug therapy; R91.8 Other nonspecific abnormal finding of lung field; Z96.643 Presence of artificial hip joint, bilateral

== ENCOUNTER 2024-01-15 16:38 | Outpatient (CLI) | payer MEDICARE, BC ==
[~2024-01-15] VITALS: Ht 167.6 cm; Wt 62.0 kg
[~2024-01-15 16:38] MED LIST changes: +ACET650T15 PO; +CEFD1CAP9 PO; -NADO40TA PO; +NADO40TA6 PO
[2024-01-15] MEDS: MEPOLIZUMAB 100 MG SC ONE (16:59)
[2024-01-15] MEDS ORDERED: MEPOLIZUMAB 100 MG ONE (16:59)
[2024-01-15 17:03] VITALS: BP 128/77; O2SAT 97
== END 2024-01-15 17:10 ==
LOC: M INFU 16:38
PROVIDERS: ATTEND Otolaryngology
DX: J33.0 Polyp of nasal cavity (principal); Z88.0 Allergy status to penicillin; Z88.1 Allergy status to other antibiotic agents; Z88.2 Allergy status to sulfonamides; Z88.8 Allergy status to other drugs, medicaments and biological substances; Z91.041 Radiographic dye allergy status; Z91.02 Food additives allergy status
CPT/HCPCS: 96372; J2182

== ENCOUNTER 2024-02-12 17:08 | Outpatient (CLI) | payer MEDICARE, BC ==
[~2024-02-12] VITALS: Ht 167.6 cm; Wt 62.0 kg
[2024-02-12] MEDS: MEPOLIZUMAB 100 MG SC ONE (17:15)
[2024-02-12 17:16] VITALS: BP 138/78; O2SAT 99
== END 2024-02-12 17:30 ==
LOC: M INFU 17:08
PROVIDERS: ATTEND Otolaryngology
DX: J33.0 Polyp of nasal cavity (principal)
CPT/HCPCS: 96372; J2182

== ENCOUNTER 2024-03-15 16:32 | Outpatient (CLI) | payer MEDICARE ==
[~2024-03-15] VITALS: Ht 157.5 cm; Wt 66.0 kg
[2024-03-15 16:30] VITALS: BP 144/79; O2SAT 96
[2024-03-15] MEDS: MEPOLIZUMAB 100 MG SC ONE (16:59)
== END 2024-03-15 17:04 ==
LOC: M INFU 16:32
PROVIDERS: ATTEND Otolaryngology
DX: J33.0 Polyp of nasal cavity (principal); Z88.0 Allergy status to penicillin; Z88.2 Allergy status to sulfonamides; Z88.1 Allergy status to other antibiotic agents; Z88.8 Allergy status to other drugs, medicaments and biological substances; Z91.041 Radiographic dye allergy status
CPT/HCPCS: 96372; J2182

== ENCOUNTER 2024-04-12 15:20 | Outpatient (CLI) | payer MEDICARE, BC ==
[2024-04-12 15:10] VITALS: BP 169/75; O2SAT 98
[2024-04-12] MEDS: MEPOLIZUMAB 100 MG SC ONE (15:36)
== END 2024-04-12 15:45 | disposition home or self-care (01) ==
LOC: M INFU 15:20
PROVIDERS: ATTEND Otolaryngology
DX: J33.0 Polyp of nasal cavity (principal); Z91.041 Radiographic dye allergy status; Z88.0 Allergy status to penicillin; Z88.2 Allergy status to sulfonamides; Z88.1 Allergy status to other antibiotic agents; Z88.8 Allergy status to other drugs, medicaments and biological substances
CPT/HCPCS: 96372; J2182

== ENCOUNTER 2024-05-11 16:33 | Outpatient (CLI) | payer MEDICARE, BC ==
[2024-05-11 16:30] VITALS: BP 136/71; O2SAT 96
[2024-05-11] MEDS: MEPOLIZUMAB 100 MG SC ONE (16:45)
== END 2024-05-11 16:56 ==
LOC: M INFU 16:33
PROVIDERS: ATTEND Otolaryngology
DX: J33.0 Polyp of nasal cavity (principal); Z91.041 Radiographic dye allergy status; Z88.0 Allergy status to penicillin; Z88.2 Allergy status to sulfonamides; Z88.1 Allergy status to other antibiotic agents; Z88.8 Allergy status to other drugs, medicaments and biological substances
CPT/HCPCS: 96372; J2182

== ENCOUNTER 2024-06-08 11:13 | Outpatient (CLI) | payer MEDICARE, BC ==
[2024-06-08 11:40] VITALS: BP 168/70; O2SAT 96
[2024-06-08] MEDS: MEPOLIZUMAB 100 MG SC ONE (11:51)
== END 2024-06-08 12:00 ==
LOC: M INFU 11:13
PROVIDERS: ATTEND Otolaryngology
DX: J33.0 Polyp of nasal cavity (principal); Z88.0 Allergy status to penicillin; Z88.2 Allergy status to sulfonamides; Z91.041 Radiographic dye allergy status; Z91.018 Allergy to other foods
CPT/HCPCS: 96372; J2182

== ENCOUNTER → 2025-03-15 | Outpatient (REF) | payer MEDICARE, BC ==
[~2025-03-15] MED LIST changes: +ATIV1TAB10 PO; +BENR30AU SQ; +DOCU8.6T PO; +LEVS0.124 SL; +LISI40TA10 PO; -LISI40TA4 PO; +MORP1SOL5 BUC; +NADO40TA40 PO; -NADO40TA6 PO; +ONDA-282 PO; +PRED20TA PO
[2025-03-15 15:16] LABS: PLATELET COUNT, AUTOMATED 265 10^3/uL (150-450)
[2025-03-15 15:39] LABS: CALCIUM LEVEL 9.5 MG/DL (8.3-10.6); CARBON DIOXIDE LEVEL 24 MMOL/L (20-31); CHLORIDE LEVEL 102 MMOL/L (98-107); CREATININE FOR GFR 0.47 MG/DL (0.55-1.30); GLOMERULAR FILTRATION RATE > 90.0 (>32); POTASSIUM SERUM 4.2 MMOL/L (3.5-5.1); SODIUM LEVEL 141 MMOL/L (136-145)
[2025-03-15 16:02] LABS: LYMPHOCYTES 4 % (16-44); METAMYELOCYTES 3 % (0-0); MONOCYTES 3 % (0-5); MYELOCYTES 1 % (0-0); NEUTROPHILS 85 % (28-66); PLATELET ESTIMATE INCREASED (NORMAL)
== END ==
LOC: M LAB REF 11:26
PROVIDERS: ATTEND Internal Medicine
DX: I10 Essential (primary) hypertension (principal); M32.9 Systemic lupus erythematosus, unspecified

== ENCOUNTER 2025-03-17 10:48 | Outpatient (CLI) | payer MEDICARE, BC ==
[~2025-03-17] VITALS: Ht 160 cm; Wt 67.0 kg
[~2025-03-17 10:48] MED LIST changes: +ACET-1515 PO; -ACET650T15 PO
[2025-03-17 10:55] VITALS: BP 139/84; O2SAT 98
[2025-03-17] MEDS: BENRALIZUMAB 30 MG/ML SYRINGE SC ONE (11:18)
== END 2025-03-17 13:58 ==
LOC: M INFU 10:48
PROVIDERS: ATTEND Nurse Practitioner Family
DX: M30.1 Polyarteritis with lung involvement [Churg-Strauss] (principal); Z88.2 Allergy status to sulfonamides; Z88.1 Allergy status to other antibiotic agents; Z88.8 Allergy status to other drugs, medicaments and biological substances; Z91.041 Radiographic dye allergy status
CPT/HCPCS: 96372; J0517

== ENCOUNTER 2025-04-14 10:49 | Outpatient (CLI) | payer MEDICARE, BC ==
[~2025-04-14] VITALS: Ht 160 cm; Wt 67.0 kg
[2025-04-14 11:15] VITALS: BP 109/66; O2SAT 98
[2025-04-14] MEDS: BENRALIZUMAB 30 MG/ML SYRINGE SC ONE (11:18)
== END 2025-04-14 11:25 ==
LOC: M INFU 10:49
PROVIDERS: ATTEND Nurse Practitioner Family
DX: M30.1 Polyarteritis with lung involvement [Churg-Strauss] (principal); Z88.2 Allergy status to sulfonamides; Z88.1 Allergy status to other antibiotic agents; Z88.8 Allergy status to other drugs, medicaments and biological substances; Z91.041 Radiographic dye allergy status

== ENCOUNTER 2025-04-16 01:15 | Inpatient (IN) | payer MEDICARE, BC ==
[2025-04-16] VITALS (22 sets, daily range): BP systolic 86–145; BP diastolic 51–84; TEMP 97–100.2; O2SAT 94–99
[~2025-04-16] VITALS: Ht 162.6 cm; Wt 71.0 kg
[2025-04-16] MEDS: NOREPINEPHRINE 4MG IN D5 250ML 4 MG in IV 1 EA IV SCH (02:01)
[2025-04-16] MEDS: NS (Normal Saline) 0.9% 1,000 ML IV ONE ×2 (02:02→04:40)
[2025-04-16] MEDS ORDERED: METOCLOPRAMIDE 10 MG TAB PO ONE (02:05)
[2025-04-16] MEDS: PIPERACILLIN/TAZOBACTAM SOD 4.5 GM in DEXTROSE 5% (D5W) ADV/MINI-BAG 50 ML IV ONE (03:08)
[2025-04-16 03:19] LABS: PLATELET COUNT, AUTOMATED 387 10^3/uL (150-450)
[2025-04-16 03:26] LABS: INR 0.95
[2025-04-16 03:40] LABS: CK-MB VALUE MASS 6.7 NG/ML (<3.6)
[2025-04-16 03:41] LABS: ALT/SGPT 28 U/L (7.0-40); AST/SGOT 35 U/L (<34)
[2025-04-16] MEDS: MORPHINE 4 MG/ML 1 ML VIAL IV PRN (03:43)
[2025-04-16 03:45] LABS: CPK CREATINE PHOSPHOKINASE 35 U/L (34-145); MB/CK RELATIVE INDEX 19.14 (< OR =4)
[2025-04-16 03:54] LABS: ATYPICAL LYMPH 2 % (0-5); LYMPHOCYTES 5 % (16-44); METAMYELOCYTES 2 % (0-0); MONOCYTES 10 % (0-5); MYELOCYTES 2 % (0-0); NEUTROPHILS 78 % (28-66)
[2025-04-16 03:59] LABS: PLATELET ESTIMATE NORMAL (NORMAL)
[2025-04-16] MEDS ORDERED: VANCOMYCIN HCL 1,000 MG, VIAL MATE ADAPTER 1 EACH in NS 250 ML IV SCH (05:20)
[2025-04-16 05:49] LABS: CALCIUM LEVEL 9.4 MG/DL (8.3-10.6); CARBON DIOXIDE LEVEL 17 MMOL/L (20-31); CHLORIDE LEVEL 106 MMOL/L (98-107); CREATININE FOR GFR 0.71 MG/DL (0.55-1.30); GLOMERULAR FILTRATION RATE 85.9 (>32); POTASSIUM SERUM 4.6 MMOL/L (3.5-5.1); SODIUM LEVEL 140 MMOL/L (136-145)
[2025-04-16] MEDS ORDERED: ECOT81TA5 PO (05:59)
[2025-04-16] MEDS ORDERED: TEMA7.5C PO (05:59)
[2025-04-16] MEDS ORDERED: ACET-653 PO (05:59)
[2025-04-16] MEDS ORDERED: LOSA50TA28 PO (05:59)
[2025-04-16] MEDS ORDERED: TYLE650T38 PO (05:59)
[2025-04-16] MEDS ORDERED: SALA1TAB PO (05:59)
[2025-04-16] MEDS ORDERED: ATIV1TAB10 PO (05:59)
[2025-04-16] MEDS ORDERED: CELE0.09 PO (05:59)
[2025-04-16] MEDS ORDERED: RIZA10TA2 PO (05:59)
[2025-04-16] MEDS ORDERED: NEXI20CA PO (05:59)
[2025-04-16] MEDS ORDERED: NADO20TA38 PO (05:59)
[2025-04-16] MEDS ORDERED: SPIR-10 PO (05:59)
[2025-04-16] MEDS ORDERED: HOME MED LIST COMPLETE! XX SCH (06:10)
[2025-04-16 07:35] LABS: VENOUS BASE EXCESS -13.0 (-2.0-2.0); VENOUS HCO3 15.2 MMOL/L (23.0-27.0); VENOUS O2 SATURATION 67.8 % (60.0-80.0); VENOUS PARTIAL PRESSURE CO2 43.7 mmHg (38.0-50.0); VENOUS PARTIAL PRESSURE O2 42.1 mmHg (30.0-50.0); VENOUS PH 7.160 UNITS (7.330-7.430); VENOUS SITE NOT GIVEN; VENOUS STANDARD HCO3 13.9 MMOL/L; VENOUS TOTAL CO2 16.6 MMOL/L (24.0-28.0)
[2025-04-16 08:07] LABS: CK-MB VALUE MASS 6.2 NG/ML (<3.6)
[2025-04-16 08:17] LABS: CPK CREATINE PHOSPHOKINASE 49.0 U/L (34-145); MB/CK RELATIVE INDEX 12.65 (< OR =4)
[2025-04-16] MEDS: PANTOPRAZOLE 40MG VIAL IV SCH (08:20)
[2025-04-16] MEDS: HYDROCORTISONE 100 MG/2 ML VIAL IV SCH (08:21)
[2025-04-16] MEDS: VANCOMYCIN HCL 1,250 MG, VIAL MATE ADAPTER 1 EACH in NS 250 ML IV ONE (08:21)
[2025-04-16] MEDS: LR 1,000 ML IV SCH (08:22)
[2025-04-16 09:00] LABS: CALCIUM LEVEL 8.5 MG/DL (8.3-10.6); CARBON DIOXIDE LEVEL 14.0 MMOL/L (20-31); CHLORIDE LEVEL 110.0 MMOL/L (98-107); CREATININE FOR GFR 0.62 MG/DL (0.55-1.30); GLOMERULAR FILTRATION RATE 90.0 (>32); MAGNESIUM LEVEL 2.0 MG/DL (1.8-2.4); POTASSIUM SERUM 4.4 MMOL/L (3.5-5.1); SODIUM LEVEL 140.0 MMOL/L (136-145)
[2025-04-16] MEDS: [UNRECOGNIZED DRUG - REMARK] XX SCH (09:00)
[2025-04-16] MEDS: FLUDROCORTISONE ACETATE 0.1 MG TAB PO SCH (09:00)
[2025-04-16] MEDS: CAFFEINE 200 MG TABLET PO SCH (09:00)
[2025-04-16] MEDS: HEPARIN SOD 5000 UNITS/ML 1 ML VIAL/SYRINGE SQ SCH (09:17)
[2025-04-16] MEDS: LR 500 ML IV ONE ×2 (09:17→12:36)
[2025-04-16] MEDS: PIPERACILLIN/TAZOBACTAM SOD 4.5 GM in DEXTROSE 5% (D5W) ADV/MINI-BAG 50 ML IV SCH (09:18)
[2025-04-16 09:52] LABS: APPEARANCE, URINE CLOUDY (CLEAR); BACTERIA, URINE AUTO 1+ (NEGATIVE); BILIRUBIN, URINE AUTO NEGATIVE (NEGATIVE); BLOOD, URINE BLOOD NEGATIVE (NEGATIVE); GLUCOSE, URINE (UA) AUTO NEGATIVE (NEGATIVE); GRANULAR CAST, URINE AUTO 7 /LPF; KETONE, URINE AUTO NEGATIVE (NEGATIVE); LEUKOCYTE ESTERASE, URINE AUTO 1+ (NEGATIVE); MUCUS, URINE SMALL (NEGATIVE); NITRITE, URINE AUTO POSITIVE (NEGATIVE); PROTEIN, URINE AUTO 1+ mg/dL (NEGATIVE); RBC, URINE AUTO 2 /HPF (0-3); SPECIFIC GRAVITY URINE AUTO 1.019 (1.002-1.035); SQUAMOUS EPITHELIAL CELL UR AU 0 /HPF (0-6); UROBILINOGEN, URINE AUTO 0.2 mg/dL (0.0-2.0); WBC, URINE AUTO 40 /HPF (0-3)
[2025-04-16 10:36] LABS: VENOUS BASE EXCESS -13.7 (-2.0-2.0); VENOUS HCO3 9.9 MMOL/L (23.0-27.0); VENOUS O2 SATURATION 98.5 % (60.0-80.0); VENOUS PARTIAL PRESSURE CO2 19.1 mmHg (38.0-50.0); VENOUS PARTIAL PRESSURE O2 214.6 mmHg (30.0-50.0); VENOUS PH 7.332 UNITS (7.330-7.430); VENOUS STANDARD HCO3 13.9 MMOL/L; VENOUS TOTAL CO2 10.5 MMOL/L (24.0-28.0)
[2025-04-16] MEDS ORDERED: LR 1,000 ML IV ONE (11:30)
[2025-04-16] MEDS ORDERED: HEPARIN SOD 5000 UNITS/ML 1 ML VIAL/SYRINGE SC SCH (14:00)
[2025-04-16] MEDS: SODIUM BICARBONATE 150 MEQ in D5W 1,000 ML IV SCH (14:33)
[2025-04-16 20:17] LABS: VENOUS BASE EXCESS -6.7 (-2.0-2.0); VENOUS HCO3 15.7 MMOL/L (23.0-27.0); VENOUS O2 SATURATION 98.8 % (60.0-80.0); VENOUS PARTIAL PRESSURE CO2 23.1 mmHg (38.0-50.0); VENOUS PARTIAL PRESSURE O2 166.0 mmHg (30.0-50.0); VENOUS PH 7.450 UNITS (7.330-7.430); VENOUS STANDARD HCO3 19.0 MMOL/L; VENOUS TOTAL CO2 16.4 MMOL/L (24.0-28.0)
[2025-04-16] MEDS: VANCOMYCIN HCL 1,000 MG, VIAL MATE ADAPTER 1 EACH in NS 250 ML IV SCH (20:19)
[2025-04-16 20:41] LABS: CALCIUM LEVEL 8.3 MG/DL (8.3-10.6); CARBON DIOXIDE LEVEL 16 MMOL/L (20-31); CHLORIDE LEVEL 113 MMOL/L (98-107); CREATININE FOR GFR 0.51 MG/DL (0.55-1.30); GLOMERULAR FILTRATION RATE > 90.0 (>32); MAGNESIUM LEVEL 1.8 MG/DL (1.8-2.4); PHOSPHORUS LEVEL 3.3 MG/DL (2.4-5.1); POTASSIUM SERUM 3.8 MMOL/L (3.5-5.1); SODIUM LEVEL 146 MMOL/L (136-145)
[2025-04-17] VITALS (13 sets, daily range): BP systolic 96–168; BP diastolic 51–84; TEMP 98.5–99.9; O2SAT 90–100
[2025-04-17 04:59] LABS: PLATELET COUNT, AUTOMATED 194 10^3/uL (150-450)
[2025-04-17 08:35] LABS: VANCOMYCIN RANDOM 17.2 UG/ML
[2025-04-17 08:47] LABS: ALT/SGPT 22 U/L (7.0-40); AST/SGOT 27 U/L (<34); CALCIUM LEVEL 8.0 MG/DL (8.3-10.6); CARBON DIOXIDE LEVEL 25 MMOL/L (20-31); CHLORIDE LEVEL 110 MMOL/L (98-107); CREATININE FOR GFR 0.48 MG/DL (0.55-1.30); GLOMERULAR FILTRATION RATE > 90.0 (>32); MAGNESIUM LEVEL 1.7 MG/DL (1.8-2.4); POTASSIUM SERUM 3.0 MMOL/L (3.5-5.1); SODIUM LEVEL 147 MMOL/L (136-145)
[2025-04-17] MEDS: SENNOSIDES/DOCUSATE SODIUM 8.6 MG/50MG TAB PO SCH (09:55)
[2025-04-17] MEDS: D5W 1,000 ML IV SCH (09:55)
[2025-04-17] MEDS: MIRALAX *UNIT DOSE* 17 GM PACKET PO SCH (09:55)
[2025-04-17] MEDS: VANCOMYCIN HCL 750 MG, VIAL MATE ADAPTER 1 EACH in NS 250 ML IV SCH (11:13)
[2025-04-17] MEDS: MAG SULF 1GM/100ML (MAG RUN) 1 GM in IV 1 EA IV SCH (11:13)
[2025-04-17] MEDS: KCL 10MEQ/100ML SWI (KRUN) 10 MEQ in IV 1 EA IV SCH (12:21)
[2025-04-17] MEDS ORDERED: hydrALAZINE 20 MG/ML 1 ML VIAL IV ONE (20:55)
[2025-04-17] MEDS: ONDANSETRON 4MG 2ML VIAL IV ONE (21:00)
[2025-04-17 21:55] LABS: CALCIUM LEVEL 8.1 MG/DL (8.3-10.6); CARBON DIOXIDE LEVEL 27 MMOL/L (20-31); CHLORIDE LEVEL 106 MMOL/L (98-107); CREATININE FOR GFR 0.45 MG/DL (0.55-1.30); GLOMERULAR FILTRATION RATE > 90.0 (>32); POTASSIUM SERUM 4.2 MMOL/L (3.5-5.1); SODIUM LEVEL 142 MMOL/L (136-145)
[2025-04-18] VITALS (11 sets, daily range): BP systolic 169–212; BP diastolic 79–101; TEMP 97.4–98.8; O2SAT 92–96
[2025-04-18 05:03] LABS: CALCIUM LEVEL 7.8 MG/DL (8.3-10.6); CARBON DIOXIDE LEVEL 27 MMOL/L (20-31); CHLORIDE LEVEL 102 MMOL/L (98-107); CREATININE FOR GFR 0.46 MG/DL (0.55-1.30); GLOMERULAR FILTRATION RATE > 90.0 (>32); MAGNESIUM LEVEL 2.2 MG/DL (1.8-2.4); POTASSIUM SERUM 3.5 MMOL/L (3.5-5.1); SODIUM LEVEL 139 MMOL/L (136-145)
[2025-04-18] MEDS: hydrALAZINE 20 MG/ML 1 ML VIAL IV ONE (06:11)
[2025-04-18] MEDS ORDERED: GLUCAGON INJ 1 MG VIAL SC PRN (07:20)
[2025-04-18] MEDS: ACETAMINOPHEN *IV* 1,000 MG in IV 1 EA IV PRN (07:35)
[2025-04-18] MEDS: NS (Normal Saline) 0.9% 1,000 ML IV SCH (07:42)
[2025-04-18] MEDS ORDERED: SPIRONOLACTONE 25 MG TAB PO SCH (09:00)
[2025-04-18] MEDS: LOSARTAN 50 MG TABLET PO SCH (10:40)
[2025-04-18] MEDS: hydrALAZINE 20 MG/ML 1 ML VIAL IV PRN (11:39)
[2025-04-18] MEDS ORDERED: SODIUM CHLORIDE NASAL 0.65% SPRAY BTL (OCEAN) PRN (11:45)
[2025-04-18] MEDS ORDERED: HYDROCORTISONE 100 MG/2 ML VIAL IV SCH (12:00)
[2025-04-18] MEDS: VANCOMYCIN HCL 750 MG, VIAL MATE ADAPTER 1 EACH in NS 250 ML IV SCH (15:20)
[2025-04-18] MEDS: FAT EMULSION IV 250 ML IV ONE (17:52)
[2025-04-18] MEDS: MULTIVITAMIN -ADULT INJECTION 10 ML, ZINC/COPPER/MANGANESE/SELENIUM 1 ML in AMINO AC/EL... IV SCH (17:53)
[2025-04-18] MEDS: HYDROCORTISONE 100 MG/2 ML VIAL IV SCH (20:19)
[2025-04-18] MEDS: cloNIDine HCL 0.2 MG/24 HR PATCH TOP SCH (20:51)
[2025-04-19] VITALS (7 sets, daily range): BP systolic 123–193; BP diastolic 73–90; TEMP 97–98.2; O2SAT 92–96
[2025-04-19 05:42] LABS: CALCIUM LEVEL 8.5 MG/DL (8.3-10.6); CARBON DIOXIDE LEVEL 26 MMOL/L (20-31); CHLORIDE LEVEL 103 MMOL/L (98-107); CREATININE FOR GFR 0.43 MG/DL (0.55-1.30); GLOMERULAR FILTRATION RATE > 90.0 (>32); MAGNESIUM LEVEL 1.9 MG/DL (1.8-2.4); PHOSPHORUS LEVEL 2.0 MG/DL (2.4-5.1); POTASSIUM SERUM 2.5 MMOL/L (3.5-5.1); SODIUM LEVEL 143 MMOL/L (136-145)
[2025-04-19] MEDS: KCL 20MEQ IN 100ML SWI (KRUN) 20 MEQ in IV 1 EA IV SCH (06:14)
[2025-04-19] MEDS: KCL 20MEQ IN 100ML SWI (KRUN) 20 MEQ in IV 1 EA IV ONE (10:16)
[2025-04-19 10:58] LABS: CALCIUM LEVEL 8.4 MG/DL (8.3-10.6); CARBON DIOXIDE LEVEL 26 MMOL/L (20-31); CHLORIDE LEVEL 104 MMOL/L (98-107); CREATININE FOR GFR 0.41 MG/DL (0.55-1.30); GLOMERULAR FILTRATION RATE > 90.0 (>32); POTASSIUM SERUM 3.1 MMOL/L (3.5-5.1); SODIUM LEVEL 142 MMOL/L (136-145)
[2025-04-19 11:01] LABS: PHOSPHORUS LEVEL 2.0 MG/DL (2.4-5.1)
[2025-04-19] MEDS: POTASSIUM PHOSPHATE INJ 30 MMOL in D5W 500 ML IV ONE (11:28)
[2025-04-19] MEDS: ACETAMINOPHEN *IV* 1,000 MG in IV 1 EA IV ONE (11:28)
[2025-04-19] MEDS ORDERED: AMINO AC/ELECTROLYTE/DEX/CALC 1,000 ML IV SCH (18:00)
[2025-04-19] MEDS ORDERED: MULTIVITAMIN -ADULT INJECTION 10 ML, ZINC/COPPER/MANGANESE/SELENIUM 1 ML in AMINO AC/EL... IV SCH (18:00)
[2025-04-19 18:08] LABS: CALCIUM LEVEL 7.9 MG/DL (8.3-10.6); CARBON DIOXIDE LEVEL 26 MMOL/L (20-31); CHLORIDE LEVEL 104 MMOL/L (98-107); CREATININE FOR GFR 0.42 MG/DL (0.55-1.30); GLOMERULAR FILTRATION RATE > 90.0 (>32); PHOSPHORUS LEVEL 5.6 MG/DL (2.4-5.1); POTASSIUM SERUM 4.0 MMOL/L (3.5-5.1); SODIUM LEVEL 142 MMOL/L (136-145)
[2025-04-19] MEDS: FAT EMULSION IV 250 ML IV ONE ×2 (19:00)
[2025-04-19] MEDS: AMINO AC/ELECTROLYTE/DEX/CALC 1,000 ML IV SCH (19:00)
[2025-04-20] VITALS (12 sets, daily range): BP systolic 104–161; BP diastolic 55–81; TEMP 97–98.2; O2SAT 93–100
[2025-04-20] MEDS: ACETAMINOPHEN *IV* 1,000 MG in IV 1 EA IV ONE ×2 (03:44→10:50)
[2025-04-20 07:15] LABS: CALCIUM LEVEL 8.5 MG/DL (8.3-10.6); CARBON DIOXIDE LEVEL 26 MMOL/L (20-31); CHLORIDE LEVEL 102 MMOL/L (98-107); CREATININE FOR GFR 0.49 MG/DL (0.55-1.30); GLOMERULAR FILTRATION RATE > 90.0 (>32); MAGNESIUM LEVEL 1.9 MG/DL (1.8-2.4); PHOSPHORUS LEVEL 3.6 MG/DL (2.4-5.1); POTASSIUM SERUM 3.4 MMOL/L (3.5-5.1); SODIUM LEVEL 141 MMOL/L (136-145)
[2025-04-20] MEDS ORDERED: POTASSIUM CHLORIDE 10MEQ SR TABLET PO ONE (14:00)
[2025-04-20] MEDS: D5W/0.9% SODIUM CHLORIDE 1,000 ML IV SCH (14:16)
[2025-04-20 14:21] LABS: PLATELET COUNT, AUTOMATED 222 10^3/uL (150-450)
[2025-04-20 14:56] LABS: LYMPHOCYTES 9 % (16-44); MONOCYTES 4 % (0-5)
[2025-04-20 14:57] LABS: MYELOCYTES 2 % (0-0); NEUTROPHILS 85 % (28-66)
[2025-04-20 15:00] LABS: PLATELET ESTIMATE NORMAL (NORMAL)
[2025-04-20 15:02] LABS: CALCIUM LEVEL 8.1 MG/DL (8.3-10.6); CARBON DIOXIDE LEVEL 26 MMOL/L (20-31); CHLORIDE LEVEL 105 MMOL/L (98-107); CREATININE FOR GFR 0.45 MG/DL (0.55-1.30); GLOMERULAR FILTRATION RATE > 90.0 (>32); POTASSIUM SERUM 2.8 MMOL/L (3.5-5.1); SODIUM LEVEL 144 MMOL/L (136-145)
[2025-04-20] MEDS: KCL 20MEQ IN 100ML SWI (KRUN) 20 MEQ in IV 1 EA IV STA (15:12)
[2025-04-20] MEDS ORDERED: ROCURONIUM BROMIDE 50MG/5ML VIAL As Ordered ONE (15:22)
[2025-04-20] MEDS ORDERED: LIDOCAINE 2% 100 MG/5 ML SDV (FOR ANES.) As Ordered ONE (15:28)
[2025-04-20] MEDS: VANCOMYCIN 1000MG/20ML VIAL As Ordered ONE (16:10)
[2025-04-20] MEDS ORDERED: HYDROmorphone HCL 2 MG/ML 1 ML VIAL As Ordered ONE (16:33)
[2025-04-20] MEDS ORDERED: PHENYLephrine 500MCG 5ML (100MCG/ML) SYRINGE As Ordered ONE (16:52)
[2025-04-20] MEDS: LIDOCAINE 1% SDV 30 ML VIAL As Ordered ONE (18:36)
[2025-04-20] MEDS ORDERED: SUCCINYLCHOLINE 100MG/5ML SYRINGE As Ordered ONE (18:40)
[2025-04-20] MEDS ORDERED: ONDANSETRON 4MG 2ML VIAL As Ordered ONE (18:40)
[2025-04-20] MEDS ORDERED: dexAMETHasone 4 MG/ML 1 ML VIAL As Ordered ONE (18:40)
[2025-04-20] MEDS ORDERED: SUGAMMADEX SODIUM 200 MG/2 ML VIAL As Ordered ONE (18:41)
[2025-04-20] MEDS ORDERED: HYDROMORPHONE HCL 0.5 MG/0.5 ML SYRINGE IV PRN (18:55)
[2025-04-20] MEDS ORDERED: ONDANSETRON 4MG 2ML VIAL IV PRN (18:55)
[2025-04-20] MEDS: LR 1,000 ML IV SCH (18:55)
[2025-04-20] MEDS ORDERED: LABETALOL 100 MG/20 ML VIAL As Ordered ONE (19:58)
[2025-04-20] MEDS: LABETALOL 100 MG/20 ML VIAL IV PRN (20:00)
[2025-04-20 20:22] LABS: CALCIUM LEVEL 7.7 MG/DL (8.3-10.6); CARBON DIOXIDE LEVEL 25 MMOL/L (20-31); CHLORIDE LEVEL 108 MMOL/L (98-107); CREATININE FOR GFR 0.49 MG/DL (0.55-1.30); GLOMERULAR FILTRATION RATE > 90.0 (>32); POTASSIUM SERUM 3.4 MMOL/L (3.5-5.1); SODIUM LEVEL 143 MMOL/L (136-145)
[2025-04-20] MEDS: HYDROMORPHONE HCL 0.5 MG/0.5 ML SYRINGE IV PRN (20:58)
[2025-04-20 21:21] LABS: ALT/SGPT 29 U/L (7.0-40); AST/SGOT 35 U/L (<34); CALCIUM LEVEL 7.7 MG/DL (8.3-10.6); CARBON DIOXIDE LEVEL 25 MMOL/L (20-31); CHLORIDE LEVEL 108 MMOL/L (98-107); CREATININE FOR GFR 0.49 MG/DL (0.55-1.30); GLOMERULAR FILTRATION RATE > 90.0 (>32); PHOSPHORUS LEVEL 4.4 MG/DL (2.4-5.1); POTASSIUM SERUM 3.4 MMOL/L (3.5-5.1); SODIUM LEVEL 143 MMOL/L (136-145)
[2025-04-20] MEDS: KETOROLAC 30 MG/ML 1 ML VIAL IV SCH (22:04)
[2025-04-20] MEDS: MULTIVITAMIN -ADULT INJECTION 10 ML, ZINC/COPPER/MANGANESE/SELENIUM 1 ML in AMINO AC/EL... IV SCH (22:06)
[2025-04-20] MEDS: FAT EMULSION IV 250 ML IV ONE (22:10)
[2025-04-21] VITALS (29 sets, daily range): BP systolic 130–165; BP diastolic 63–93; TEMP 96.6–98.3; O2SAT 89–100
[2025-04-21 05:34] LABS: BASO # 0.1 10^3/uL (0.0-0.2); BASO % 0.2 % (0.0-1.0); EOS # 0.0 10^3/uL (0.0-0.5); EOS % 0.0 % (0.0-3.0); LYMPH # 0.4 10^3/uL (1.5-5.0); LYMPH % 1.3 % (24.0-44.0); MONO # 0.9 10^3/uL (0.0-0.8); MONO % 3.5 % (2.0-8.0); NEUTROPHILS # 24.2 10^3/uL (1.5-8.5); NEUTROPHILS % 92.1 % (36.0-66.0); PLATELET COUNT, AUTOMATED 262 10^3/uL (150-450)
[2025-04-21 06:04] LABS: CALCIUM LEVEL 7.9 MG/DL (8.3-10.6); CARBON DIOXIDE LEVEL 25 MMOL/L (20-31); CHLORIDE LEVEL 109 MMOL/L (98-107); CREATININE FOR GFR 0.50 MG/DL (0.55-1.30); GLOMERULAR FILTRATION RATE > 90.0 (>32); MAGNESIUM LEVEL 1.8 MG/DL (1.8-2.4); PHOSPHORUS LEVEL 3.7 MG/DL (2.4-5.1); POTASSIUM SERUM 2.9 MMOL/L (3.5-5.1); SODIUM LEVEL 145 MMOL/L (136-145)
[2025-04-21] MEDS: KCL 20MEQ IN 100ML SWI (KRUN) 20 MEQ in IV 1 EA IV SCH (07:18)
[2025-04-21] MEDS: IPRATROPIUM 0.5 MG/ALBUTEROL 2.5 MG INH SOL UD 3 ML NEB SCH (10:25)
[2025-04-21 15:41] LABS: VANCOMYCIN LEVEL TROUGH 17.1 UG/ML (10.0-20.0)
[2025-04-21 15:54] LABS: CALCIUM LEVEL 7.7 MG/DL (8.3-10.6); CARBON DIOXIDE LEVEL 25 MMOL/L (20-31); CHLORIDE LEVEL 107 MMOL/L (98-107); CREATININE FOR GFR 0.52 MG/DL (0.55-1.30); GLOMERULAR FILTRATION RATE > 90.0 (>32); POTASSIUM SERUM 3.5 MMOL/L (3.5-5.1); SODIUM LEVEL 143 MMOL/L (136-145)
[2025-04-21] MEDS: AMINO AC/ELECTROLYTE/DEX/CALC 1,000 ML IV SCH (18:19)
[2025-04-21] MEDS: FAT EMULSION IV 250 ML IV ONE (18:19)
[2025-04-21] MEDS: KCL 20MEQ IN 100ML SWI (KRUN) 20 MEQ in IV 1 EA IV ONE (19:37)
[2025-04-22] VITALS (21 sets, daily range): BP systolic 116–190; BP diastolic 74–101; TEMP 97.2–98.1; O2SAT 87–100
[2025-04-22 05:28] LABS: CALCIUM LEVEL 7.6 MG/DL (8.3-10.6); CARBON DIOXIDE LEVEL 26 MMOL/L (20-31); CHLORIDE LEVEL 109 MMOL/L (98-107); CREATININE FOR GFR 0.54 MG/DL (0.55-1.30); GLOMERULAR FILTRATION RATE > 90.0 (>32); MAGNESIUM LEVEL 1.9 MG/DL (1.8-2.4); PHOSPHORUS LEVEL 2.6 MG/DL (2.4-5.1); POTASSIUM SERUM 3.3 MMOL/L (3.5-5.1); SODIUM LEVEL 145 MMOL/L (136-145)
[2025-04-22 05:46] LABS: BASO # 0.0 10^3/uL (0.0-0.2); BASO % 0.1 % (0.0-1.0); EOS # 0.0 10^3/uL (0.0-0.5); EOS % 0.0 % (0.0-3.0); LYMPH # 0.5 10^3/uL (1.5-5.0); LYMPH % 2.8 % (24.0-44.0); MONO # 0.6 10^3/uL (0.0-0.8); MONO % 3.4 % (2.0-8.0); NEUTROPHILS # 14.6 10^3/uL (1.5-8.5); NEUTROPHILS % 89.0 % (36.0-66.0); PLATELET COUNT, AUTOMATED 204 10^3/uL (150-450)
[2025-04-22] MEDS: ALBUTEROL SULFATE 2.5 MG/0.5 ML INH CONCENTRATE NEB SOLN NEB PRN (08:51)
[2025-04-22] MEDS: D5W/0.9% SODIUM CHLORIDE 1,000 ML IV SCH (09:37)
[2025-04-22] MEDS: KCL 20MEQ IN 100ML SWI (KRUN) 20 MEQ in IV 1 EA IV SCH (09:37)
[2025-04-22] MEDS: SENNA 8.6 MG TAB PO SCH (09:38)
[2025-04-22] MEDS: MIRALAX *UNIT DOSE* 17 GM PACKET PO SCH (09:39)
[2025-04-22 13:23] LABS: CALCIUM LEVEL 7.8 MG/DL (8.3-10.6); CARBON DIOXIDE LEVEL 25 MMOL/L (20-31); CHLORIDE LEVEL 108 MMOL/L (98-107); CREATININE FOR GFR 0.57 MG/DL (0.55-1.30); GLOMERULAR FILTRATION RATE > 90.0 (>32); POTASSIUM SERUM 4.1 MMOL/L (3.5-5.1); SODIUM LEVEL 144 MMOL/L (136-145)
[2025-04-22] MEDS: MULTIVITAMIN -ADULT INJECTION 10 ML, ZINC/COPPER/MANGANESE/SELENIUM 1 ML in AMINO AC/EL... IV SCH (18:00)
[2025-04-22] MEDS: FAT EMULSION IV 250 ML IV ONE (18:11)
[2025-04-23] VITALS (33 sets, daily range): BP systolic 130–178; BP diastolic 62–89; TEMP 96.5–98.7; O2SAT 91–100
[2025-04-23 04:16] LABS: PLATELET COUNT, AUTOMATED 190 10^3/uL (150-450)
[2025-04-23 04:39] LABS: CALCIUM LEVEL 7.5 MG/DL (8.3-10.6); CARBON DIOXIDE LEVEL 25 MMOL/L (20-31); CHLORIDE LEVEL 113 MMOL/L (98-107); CREATININE FOR GFR 0.55 MG/DL (0.55-1.30); GLOMERULAR FILTRATION RATE > 90.0 (>32); MAGNESIUM LEVEL 1.7 MG/DL (1.8-2.4); PHOSPHORUS LEVEL 2.7 MG/DL (2.4-5.1); POTASSIUM SERUM 3.2 MMOL/L (3.5-5.1); SODIUM LEVEL 148 MMOL/L (136-145)
[2025-04-23 04:55] LABS: LYMPHOCYTES 4 % (16-44); MONOCYTES 5 % (0-5); NEUTROPHILS 90 % (28-66)
[2025-04-23 04:56] LABS: PLATELET ESTIMATE NORMAL (NORMAL)
[2025-04-23] MEDS: MAG SULF 1GM/100ML (MAG RUN) 1 GM in IV 1 EA IV ONE (09:23)
[2025-04-23] MEDS: FUROSEMIDE 40 MG/4 ML VIAL IV ONE (12:40)
[2025-04-23] MEDS: ALTEPLASE 2 MG/2 ML VIAL XX SCH (14:39)
[2025-04-23 18:47] LABS: FREE T4 1.42 NG/DL (0.89-1.76)
[2025-04-23] MEDS: SODIUM CHLORIDE 0.9% INJ 10 ML SYR IV SCH (22:56)
[2025-04-24] VITALS (31 sets, daily range): BP systolic 138–166; BP diastolic 64–86; TEMP 97.1–98.7; O2SAT 93–100
[2025-04-24 05:58] LABS: PLATELET COUNT, AUTOMATED 204 10^3/uL (150-450)
[2025-04-24] MEDS: SODIUM CHLORIDE 0.9% INJ 10 ML SYR IV PRN (06:14)
[2025-04-24 06:27] LABS: CALCIUM LEVEL 7.7 MG/DL (8.3-10.6); CARBON DIOXIDE LEVEL 27 MMOL/L (20-31); CHLORIDE LEVEL 104 MMOL/L (98-107); CREATININE FOR GFR 0.53 MG/DL (0.55-1.30); GLOMERULAR FILTRATION RATE > 90.0 (>32); MAGNESIUM LEVEL 1.8 MG/DL (1.8-2.4); POTASSIUM SERUM 2.0 MMOL/L (3.5-5.1); SODIUM LEVEL 145 MMOL/L (136-145)
[2025-04-24 07:23] LABS: LYMPHOCYTES 6 % (16-44); METAMYELOCYTES 2 % (0-0); MONOCYTES 2 % (0-5); NEUTROPHILS 90 % (28-66); PLATELET ESTIMATE NORMAL (NORMAL)
[2025-04-24] MEDS: KCL 20MEQ IN 100ML SWI (KRUN) 20 MEQ in IV 1 EA IV SCH (08:11)
[2025-04-24] MEDS: HYDROMORPHONE HCL 0.5 MG/0.5 ML SYRINGE IV PRN (12:27)
[2025-04-24 13:04] LABS: CALCIUM LEVEL 7.6 MG/DL (8.3-10.6); CARBON DIOXIDE LEVEL 26 MMOL/L (20-31); CHLORIDE LEVEL 105 MMOL/L (98-107); CREATININE FOR GFR 0.53 MG/DL (0.55-1.30); GLOMERULAR FILTRATION RATE > 90.0 (>32); POTASSIUM SERUM 3.0 MMOL/L (3.5-5.1); SODIUM LEVEL 143 MMOL/L (136-145)
[2025-04-24] MEDS: VANCOMYCIN HCL 500 MG in DEXTROSE 5% (D5W) MINI-BAG PLU 100 ML IV SCH (17:26)
[2025-04-25] VITALS (29 sets, daily range): BP systolic 112–173; BP diastolic 62–87; TEMP 97–98; O2SAT 94–100
[2025-04-25 01:15] LABS: CALCIUM LEVEL 7.5 MG/DL (8.3-10.6); CARBON DIOXIDE LEVEL 24 MMOL/L (20-31); CHLORIDE LEVEL 106 MMOL/L (98-107); CREATININE FOR GFR 0.51 MG/DL (0.55-1.30); GLOMERULAR FILTRATION RATE > 90.0 (>32); POTASSIUM SERUM 3.2 MMOL/L (3.5-5.1); SODIUM LEVEL 142 MMOL/L (136-145)
[2025-04-25] MEDS: KCL 10MEQ/100ML SWI (KRUN) 10 MEQ in IV 1 EA IV SCH (02:59)
[2025-04-25 07:51] LABS: BASO # 0.0 10^3/uL (0.0-0.2); BASO % 0.1 % (0.0-1.0); EOS # 0.0 10^3/uL (0.0-0.5); EOS % 0.0 % (0.0-3.0); LYMPH # 0.4 10^3/uL (1.5-5.0); LYMPH % 2.6 % (24.0-44.0); MONO # 0.4 10^3/uL (0.0-0.8); MONO % 3.0 % (2.0-8.0); NEUTROPHILS # 12.3 10^3/uL (1.5-8.5); NEUTROPHILS % 90.2 % (36.0-66.0); PLATELET COUNT, AUTOMATED 217 10^3/uL (150-450)
[2025-04-25 08:17] LABS: CALCIUM LEVEL 7.3 MG/DL (8.3-10.6); CARBON DIOXIDE LEVEL 26 MMOL/L (20-31); CHLORIDE LEVEL 105 MMOL/L (98-107); CREATININE FOR GFR 0.52 MG/DL (0.55-1.30); GLOMERULAR FILTRATION RATE > 90.0 (>32); MAGNESIUM LEVEL 1.6 MG/DL (1.8-2.4); POTASSIUM SERUM 3.7 MMOL/L (3.5-5.1); SODIUM LEVEL 142 MMOL/L (136-145)
[2025-04-25] MEDS: MAG SULF 1GM/100ML (MAG RUN) 1 GM in IV 1 EA IV ONE (12:28)
[2025-04-26] VITALS (19 sets, daily range): BP systolic 143–165; BP diastolic 69–88; TEMP 97–97.7; O2SAT 97–99
[2025-04-26 06:27] LABS: BASO # 0.0 10^3/uL (0.0-0.2); BASO % 0.2 % (0.0-1.0); EOS # 0.0 10^3/uL (0.0-0.5); EOS % 0.0 % (0.0-3.0); LYMPH # 0.4 10^3/uL (1.5-5.0); LYMPH % 2.6 % (24.0-44.0); MONO # 0.5 10^3/uL (0.0-0.8); MONO % 3.2 % (2.0-8.0); NEUTROPHILS # 13.6 10^3/uL (1.5-8.5); NEUTROPHILS % 89.9 % (36.0-66.0); PLATELET COUNT, AUTOMATED 240 10^3/uL (150-450)
[2025-04-26 06:52] LABS: CALCIUM LEVEL 7.2 MG/DL (8.3-10.6); CARBON DIOXIDE LEVEL 24 MMOL/L (20-31); CHLORIDE LEVEL 102 MMOL/L (98-107); CREATININE FOR GFR 0.48 MG/DL (0.55-1.30); GLOMERULAR FILTRATION RATE > 90.0 (>32); MAGNESIUM LEVEL 1.8 MG/DL (1.8-2.4); POTASSIUM SERUM 3.3 MMOL/L (3.5-5.1); SODIUM LEVEL 139 MMOL/L (136-145)
[2025-04-26] MEDS: KCL 10MEQ/100ML SWI (KRUN) 10 MEQ in IV 1 EA IV SCH (08:57)
[2025-04-26] MEDS: cloNIDine HCL 0.2 MG/24 HR PATCH TOP SCH (09:00)
[2025-04-26] MEDS ORDERED: traMADol 50 MG TAB PO PRN (12:15)
[2025-04-26] MEDS: ACETAMINOPHEN 325 MG TAB PO PRN (16:44)
[2025-04-27] VITALS (7 sets, daily range): BP systolic 100; BP diastolic 58; TEMP 96.9–98.2; O2SAT 98–100
[2025-04-27 05:34] LABS: PLATELET COUNT, AUTOMATED 326 10^3/uL (150-450)
[2025-04-27 06:10] LABS: CALCIUM LEVEL 9.0 MG/DL (8.3-10.6); CARBON DIOXIDE LEVEL 25 MMOL/L (20-31); CHLORIDE LEVEL 107 MMOL/L (98-107); CREATININE FOR GFR 0.46 MG/DL (0.55-1.30); GLOMERULAR FILTRATION RATE > 90.0 (>32); MAGNESIUM LEVEL 1.8 MG/DL (1.8-2.4); POTASSIUM SERUM 2.7 MMOL/L (3.5-5.1); SODIUM LEVEL 144 MMOL/L (136-145)
[2025-04-27 06:43] LABS: LYMPHOCYTES 5 % (16-44); METAMYELOCYTES 1 % (0-0); MONOCYTES 4 % (0-5); NEUTROPHILS 88 % (28-66)
[2025-04-27 06:44] LABS: PLATELET ESTIMATE NORMAL (NORMAL)
[2025-04-27] MEDS: KCL 20MEQ IN 100ML SWI (KRUN) 20 MEQ in IV 1 EA IV SCH (07:04)
[2025-04-27 07:44] LABS: C REACTIVE PROTEIN QUANTITATIV 8.48 MG/DL (<1.0)
[2025-04-27] MEDS ORDERED: HYDROMORPHONE HCL 0.5 MG/0.5 ML SYRINGE IV PRN (07:50)
[2025-04-27] MEDS: HYDROMORPHONE HCL 0.5 MG/0.5 ML SYRINGE IV PRN (09:04)
[2025-04-27] MEDS ORDERED: KCL 10MEQ/100ML SWI (KRUN) 10 MEQ in IV 1 EA IV SCH (10:00)
[2025-04-27] MEDS: DEXTROSE 50% 50 ML SYRINGE IV PRN (10:28)
[2025-04-27] MEDS: KCL 20MEQ IN 100ML SWI (KRUN) 20 MEQ in IV 1 EA IV ONE (10:29)
[2025-04-27] MEDS: ONDANSETRON 4MG 2ML VIAL IV PRN (17:47)
[2025-04-28] VITALS (10 sets, daily range): BP systolic 122; BP diastolic 64; TEMP 97.3–97.4; O2SAT 93–99
[2025-04-28] MEDS: NYSTATIN 500,000 UNITS/5 ML SUSP UDC SS SCH
[2025-04-28 02:02] LABS: MAGNESIUM LEVEL 1.8 MG/DL (1.8-2.4); POTASSIUM SERUM 3.7 MMOL/L (3.5-5.1)
[2025-04-28 06:12] LABS: PLATELET COUNT, AUTOMATED 279 10^3/uL (150-450)
[2025-04-28 06:43] LABS: CALCIUM LEVEL 8.4 MG/DL (8.3-10.6); CARBON DIOXIDE LEVEL 25 MMOL/L (20-31); CHLORIDE LEVEL 107 MMOL/L (98-107); CREATININE FOR GFR 0.41 MG/DL (0.55-1.30); GLOMERULAR FILTRATION RATE > 90.0 (>32); MAGNESIUM LEVEL 1.7 MG/DL (1.8-2.4); POTASSIUM SERUM 3.5 MMOL/L (3.5-5.1); SODIUM LEVEL 144 MMOL/L (136-145)
[2025-04-28] MEDS: CelecoXIB 400 MG CAP PO SCH (10:57)
[2025-04-28] MEDS ORDERED: HYDROMORPHONE HCL 0.5 MG/0.5 ML SYRINGE IV PRN (16:00)
[2025-04-28] MEDS: HYDROMORPHONE HCL 0.5 MG/0.5 ML SYRINGE IV PRN (17:33)
[2025-04-29] VITALS (18 sets, daily range): BP systolic 118–126; BP diastolic 62–72; TEMP 96.7–97.6; O2SAT 94–100
[2025-04-29 07:50] LABS: PLATELET COUNT, AUTOMATED 276 10^3/uL (150-450)
[2025-04-29 08:35] LABS: C REACTIVE PROTEIN QUANTITATIV 16.67 MG/DL (<1.0); CALCIUM LEVEL 8.5 MG/DL (8.3-10.6); CARBON DIOXIDE LEVEL 26 MMOL/L (20-31); CHLORIDE LEVEL 106 MMOL/L (98-107); CREATININE FOR GFR 0.45 MG/DL (0.55-1.30); GLOMERULAR FILTRATION RATE > 90.0 (>32); MAGNESIUM LEVEL 1.7 MG/DL (1.8-2.4); POTASSIUM SERUM 3.9 MMOL/L (3.5-5.1); SODIUM LEVEL 141 MMOL/L (136-145)
[2025-04-29] MEDS: traMADol 50 MG TAB PO SCH (09:40)
[2025-04-29] MEDS: MAG SULF 1GM/100ML (MAG RUN) 1 GM in IV 1 EA IV SCH (09:41)
[2025-04-30] VITALS (9 sets, daily range): BP systolic 119; BP diastolic 88; TEMP 97.4; O2SAT 94–97
[2025-04-30] MEDS: GLUCOSE 4 GM CHEW PO PRN (00:52)
[2025-04-30 05:34] LABS: PLATELET COUNT, AUTOMATED 261 10^3/uL (150-450)
[2025-04-30 06:07] LABS: CALCIUM LEVEL 8.4 MG/DL (8.3-10.6); CARBON DIOXIDE LEVEL 26 MMOL/L (20-31); CHLORIDE LEVEL 106 MMOL/L (98-107); CREATININE FOR GFR 0.48 MG/DL (0.55-1.30); GLOMERULAR FILTRATION RATE > 90.0 (>32); MAGNESIUM LEVEL 2.0 MG/DL (1.8-2.4); POTASSIUM SERUM 3.6 MMOL/L (3.5-5.1); SODIUM LEVEL 142 MMOL/L (136-145)
[2025-04-30] MEDS ORDERED: POLYVINYL ALCOHOL OPHTH SOLN 15ML (LIQUITEARS) OU PRN (09:00)
[2025-04-30] MEDS ORDERED: ATROPINE SULFATE 1% OPHTH SOLN 2 ML BTL SL PRN (09:00)
[2025-04-30] MEDS ORDERED: SALIVA SUBSTITUTE BTL MT PRN (09:00)
[2025-04-30] MEDS ORDERED: ONDANSETRON 4MG ORAL DISINTEGRATING TAB PO PRN (09:00)
[2025-04-30] MEDS: HYDROMORPHONE HCL 0.5 MG/0.5 ML SYRINGE IV PRN (11:14)
[2025-05-02] MEDS: HYOSCYAMINE SULFATE 0.125 MG SUBL TABLET SL PRN (01:31)
== END 2025-05-02 03:22 | disposition expired | DRG 853 ==
LOC: M ED 01:15 → M ED INP 05:24 → EEVIPCON 05:24 → M ICU 06:45 → M PCU 04-21 15:28
PROVIDERS: ADMIT Student in an Organized Health Care Education/Training Program; ATTEND Student in an Organized Health Care Education/Training Program
PROC: B246ZZZ Ultrasonography of Right and Left Heart (ICD-10-PCS; 2025-04-16)
PROC: 02HV33Z Insertion of Infusion Device into Superior Vena Cava, Percutaneous Approach (ICD-10-PCS; 2025-04-17)
PROC: 0DN84ZZ Release Small Intestine, Percutaneous Endoscopic Approach (ICD-10-PCS; principal; 2025-04-21)
PROC: 8E0W4CZ Robotic Assisted Procedure of Trunk Region, Percutaneous Endoscopic Approach (ICD-10-PCS; 2025-04-21)
PROC: 30233N1 Transfusion of Nonautologous Red Blood Cells into Peripheral Vein, Percutaneous Approach (ICD-10-PCS; 2025-04-23)
DX: A41.9 Sepsis, unspecified organism (principal); R65.21 Severe sepsis with septic shock; J69.0 Pneumonitis due to inhalation of food and vomit; E44.0 Moderate protein-calorie malnutrition; M30.1 Polyarteritis with lung involvement [Churg-Strauss]; K56.50 Intestinal adhesions [bands], unspecified as to partial versus complete obstruction; E87.20 Acidosis, unspecified; N39.0 Urinary tract infection, site not specified; D62 Acute posthemorrhagic anemia; E83.39 Other disorders of phosphorus metabolism; K44.9 Diaphragmatic hernia without obstruction or gangrene; Z66 Do not resuscitate; I10 Essential (primary) hypertension; E87.6 Hypokalemia; M32.9 Systemic lupus erythematosus, unspecified; K21.9 Gastro-esophageal reflux disease without esophagitis; E83.42 Hypomagnesemia; I48.91 Unspecified atrial fibrillation; G89.4 Chronic pain syndrome; J47.9 Bronchiectasis, uncomplicated; I27.20 Pulmonary hypertension, unspecified; G43.909 Migraine, unspecified, not intractable, without status migrainosus; Z79.52 Long term (current) use of systemic steroids; Z79.899 Other long term (current) drug therapy; Z79.82 Long term (current) use of aspirin; Z88.1 Allergy status to other antibiotic agents; Z88.2 Allergy status to sulfonamides; Z88.8 Allergy status to other drugs, medicaments and biological substances; Z91.041 Radiographic dye allergy status; Z91.018 Allergy to other foods; Z90.49 Acquired absence of other specified parts of digestive tract